=== PATIENT | female | born 1950 | race Caucasian/White ===

== ENCOUNTER 2023-02-03 09:02 | Outpatient (CLI) | payer MEDICARE, BC, SELFPAY ==
--- NOTE | 2023-02-03 09:15 | CRLHL7_ITS ---
For Patients: As a result of the Century Cures Act, medical imaging exams and procedure reports are released immediately into your electronic medical record. You may view this report before your referring provider. If you have questions, please contact your health care provider. INDICATION: Oropharyngeal dysphagia TECHNIQUE: Modified barium swallow. Fluoroscopic time 1 minute 19 seconds. 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 Swallowing mechanism appears within normal limits. No episodes of penetration or aspiration. Difficulty initiating the swallowing mechanism. Dictated by Tonny John MD @ 02/03/2023 10:41:06 AM (Electronically Signed)
== END 2023-02-03 09:03 | disposition home or self-care (01) ==
LOC: RAD 09:06
PROVIDERS: PCP Family Medicine; Visit Provider Family Medicine
DX: R13.12 Dysphagia, oropharyngeal phase (principal)
CPT/HCPCS: 74230; 92611

== ENCOUNTER 2023-10-26 08:09 | Outpatient (CLI) | payer MEDICARE, BC, SELFPAY | END 2023-10-26 08:10 | disposition home or self-care (01) | PROVIDERS: PCP Family Medicine; Visit Provider Family Medicine | DX: M54.16 Radiculopathy, lumbar region (principal); M51.36 Other intervertebral disc degeneration, lumbar region | CPT/HCPCS: 62323; J0702; Q9966 ==

== ENCOUNTER 2024-02-09 14:24 | Outpatient (RCR) | payer MEDICARE, BC, SELFPAY ==
--- NOTE | 2024-02-09 15:47 | PT.OPEX ---
PT [place] Out[facility] Eval PT [facility] Outpatient Eval Start: 02/09/24 11:43 Freq: Status: Active Protocol: Document 02/09/24 11:47 ENM (Rec: 02/09/24 15:29 ENM [id number]) E-signed By LEEROY JaramilloT Physical Therapy Outpatient Evaluation Insurance Information Recert Due Date 05/09/24 Insurance Name Medicare B Medical Diagnosis unilateral primary osteoarthritis, left hip Treating Diagnosis impaired gait, impaired posture, decreased hip ROM, decreased hip strength Referring MD [place] Subjective Subjective Patient presents to PT for pre -operative appointment prior to left total hip arthroplasty and right hip fluoroscopic guided steroid injection on 02/24/24 to be performed by Dr. Colorado. She has had back and bilateral hip pains for years. Her back is bothering her the most right now which is an issue she deals with on and off. She has seen a PT at [facility] for years and has been working with them leading up to the surgery. Is also going to have rehab with them after. At baseline she stays active with water aerobics everyday. Is hoping she can get back to walking and biking after the surgery. She states that today she doesn't feel well and is dizzy. For additional home set up information see pre-op flowsheet. Pain Comments back 08/01 left and right hip moderate levels of pain Date of Surgery (If applicable) 02/24/24 Current Work Status Retired Objective Other/Pertinent Objective Limited assessment as patient not feeling well due to dizziness and low back pain AROM hip flexion WNL hip IR 50% limited R WFL hip ER 50% limited R WFL strength: hip flexors 4-/5 B knee extensors 4-/5 B gait/balance: Patient ambulates with flexed trunk posture, decreased knee ext bilaterally, decreased hip extension bilaterally and antalgic gait pattern other: Patient slow to transition from hip flexion to ext when laying down due to discomfort in left hip Assessment Assessment/Impression Patient is a 74 year old female presenting for pre op visit prior to L ANTWAN and R hip injection on DOS 02/24/24. Patient has a long history of bilateral hip and low back pains. Her low back and right hip are being managed with injections. She has also participated in physical therapy and water aerobics consistently for years. They have difficulties right now walking, sitting and standing. She will have assist from spouse and sister at home after surgery. Patients goal is to be able to walk and ride her bike again. Assessment today was limited due to patient feeling dizzy and having significant low back pain. Upon assessment patient displays decreased hip ROM, decreased proximal hip strength and antalgic gait pattern. Therapist issued post op exercises today which she plans to review with her primary PT later this week before surgery. Alona will be seen post operatively at another facility to reassess impairments that will be addressed with skilled care. She would greatly benefit from skilled PT in order to progress strength, ROM and ambulation post operatively to perform all household duties and recreational activities without significant difficulty or discomfort. Primary Functional Limitations walking, sitting, standing Plan of Care Rehabilitation Potential Good Physical Therapy Goals After pre-op visit: ? Patient will be independent with HEP ? Patient will verbalize knowledge of stair navigation and proper sequencing ? Patient will have knowledge on home adaptations and use of assistive devices post operatively ? Patient will have knowledge of edema management Coordination/Communication With Referral Source Treatment Plan/Direct Interventions Gait Training,Ice/Cold/ Vasopneumatic,Joint Mobilization,Manual Therapy, Neuromuscular Re-ed,Self-Care/ Home Management,Therapeutic Activities,Therapeutic Exercises Frequency/Duration 1x visit prior to surgery on . Patient scheduled to start outpatient PT s/p L ANTWAN on 02/24/24 with a [facility] Therapist. Has HEP to start with pre-operatively. Patient Will Be Discharged From Therapy Completion of LTG(s), Independent w/HEP Evaluation Billing Untimed Code Treatment Minutes 14 Complexity Low Certification Information Initial Certification Date 02/09/24 Ending Certification Date 05/09/24 Provider Signature Shows Agreement With POC & Medical Necessity Physician Signature & Date Requested Please Sign/Date Here Physician Comment/Change : Physician NPI Number #
== END 2024-06-08 23:59 | disposition home or self-care (01) ==
PROVIDERS: PCP Family Medicine; Visit Provider Orthopaedic Surgery
DX: M16.12 Unilateral primary osteoarthritis, left hip (principal); R26.9 Unspecified abnormalities of gait and mobility; Z51.89 Encounter for other specified aftercare; R29.898 Other symptoms and signs involving the musculoskeletal system; R29.3 Abnormal posture
CPT/HCPCS: 97110; 97161

== ENCOUNTER 2024-02-24 06:35 | Day surgery (SDC) | payer MEDICARE, BC, SELFPAY ==
[2024-02-24] VITALS (35 sets, daily range): BP systolic 89–165; BP diastolic 49–99; PULSE 42–112; RESP 14–20; TEMP 35.7–37; O2SAT 90–100; BMI 21.5
[2024-02-24] MEDS: CELECOXIB 200 MG CAPSULE PO (06:27)
[2024-02-24] MEDS: ACETAMINOPHEN 500 MG TABLET 1000 MG PO ×3 (06:27→20:32)
[2024-02-24] MEDS: OXYCODONE (CR) 10 MG TAB.ER.12H PO (06:27)
[2024-02-24] MEDS: SODIUM CHLORIDE 0.9 % (FLUSH) 10 ML SYRINGE IVF ×3 (06:35→23:51)
[2024-02-24] MEDS: LACTATED RINGERS 1000 ML 1,000 ML 100 ML IV ×3 (06:35→11:28)
[2024-02-24] MEDS: MIDAZOLAM HCL 1 MG/ML inj IVP (07:15)
[2024-02-24] MEDS: fentaNYL 100 MCG/2 ML inj IVP (07:15)
--- NOTE | 2024-02-24 07:32 | W.PM.NB ---
Nerve Block Nerve Block Time Seen by Provider: 07:10 Date Seen: 02/24/24 Type of block requested by surgeon for post-operative analgesia: CULLEN/JESICA Side: left Time out performed: Yes Verification of patient name: Yes Verification of date of : Yes Site marking: site marked Name of person performing procedure: Nando Continuous monitoring Was continuous monitoring of O2 sat, B/P, quality assurance monitor, recorded every 15 minutes?: Yes Procedure Checklist: sterile prep, needles and gloves Ultrasound guided. Images saved: Yes Medications given in 5ml increments after negative aspiration: Ropivicaine %: 0.5 mL: 30 Needle gauge: 20 Decadron (mg): 10 Precedex (mcg): 25 Patient tolerated procedure well: Yes Additional comments: Injected in 5 mL increments after negative aspiration Block Charges Block Charge (with Pro Fee): Other Periph Nerve Block (PRABHA BERMAN) Use of Ultrasound Machine for Block: Yes- US Guidance/pain block
--- NOTE | 2024-02-24 07:45 | XR_ITS ---
Patient: JOVITA LEVINE Facility:?[facility] Patient ID:?[id number] Site Patient ID:?[id number]. Site :?1950 Study:?XRay-Hip Left INTRA OP-02/24/2024 11:19:48 AM Ordering Physician:MEENAKSHI Final Report: Indication: Hip replacement surgery Technique: Fluoroscopic images of the hips, including AP hip centered pelvic films, AP view of the left hip and AP view of the right hip. Fluoroscopy time 74.3 seconds. Findings/Impression: Hardware from a left total hip arthroplasty is in satisfactory position. Fluoroscopic guidance for right hip injection also noted. Dictated by Tonny John MD @ 02/24/2024 12:32:34 PM Signed by:?Tonny John MD @02/24/2024 12:32:34 PM (Electronic Signature)
[2024-02-24] MEDS: CEFAZOLIN 2 GM INJ IVP (08:17)
[2024-02-24] MEDS: TRANEXAMIC ACID 100 MG/ML INJ 1000 MG IV (08:18)
[2024-02-24] MEDS: methylPREDNISolone acetate 80 MG/ML INJ INTRA-ARTI (09:39)
[2024-02-24] MEDS: BUPIVACAINE 0.25% 30 ML INJECTION (09:39)
--- NOTE | 2024-02-24 09:46 | XR_ITS ---
Patient: JOVITA LEVINE Facility:?[facility] Patient ID:?[id number] Site Patient ID:?[id number]. Site :?1950 Study:?XRay-Hip Left 2 VIEW POSTOP-02/24/2024 11:00:06 AM Ordering Physician:MEENAKSHI Final Report: Indication: Postop Technique: AP pelvis and lateral view left hip Findings/Impression: Hardware from a left total hip arthroplasty is in satisfactory position. Bone alignment is normal. No sign of acute fracture. Postop changes are within normal limits. Dictated by Tonny John MD @ 02/24/2024 12:33:12 PM Signed by:?Tonny John MD @02/24/2024 12:33:12 PM (Electronic Signature)
--- NOTE | 2024-02-24 09:47 | P.ORPRC_ITS ---
Procedure Note Date of procedure: 02/24/24 Procedure: PREOPERATIVE DIAGNOSIS: Bilateral hip osteoarthritis POSTOPERATIVE DIAGNOSIS: Bilateral hip osteoarthritis NAME OF OPERATION: Left total hip arthroplasty, right hip fluoroscopic guided steroid injection SURGEON: Fede Colorado MD PHOTOGRAPHIC DOUBLE: Pooja Barksdale PA-C, STANFORD Monsalve IMPLANTS: 1. J[employer]J Rheems # 52 sector ingrowth cup 2. 36 x 52 +4 neutral polyethylene 3. Actis # 3 standard collared ingrowth stem 4. 36 + 1.5 ceramic femoral head ANESTHESIA: General ESTIMATED BLOOD LOSS: 550 cc COMPLICATIONS: None SPECIMENS: None DRAINS: None PREOPERATIVE ANTIBIOTICS: Ancef 1 grams INDICATIONS: The patient is a 73-year-old with a longstanding history of severe, unrelenting left hip pain secondary to end-stage left hip osteoarthritis. Despite appropriate nonoperative management, including activity modification, use of an assist device, anti-inflammatories, [id number] pain medication, physical therapy and injections, they continue to have pain and disability. Operative intervention was offered. The risks, benefits and expected outcomes were discussed in detail. These included but were not limited to: Infection, bleeding, injury to blood vessel or nerve, venous thromboembolism. All questions were answered to their satisfaction. Use of an outpatient physical therapist assistant was necessary throughout the case for patient positioning and safety, soft tissue retraction and closure. PROCEDURE: The patient was placed supine on the Kistler table. General anesthesia was administered. The outpatient physical therapist assistant made sure the patient was properly positioned. The left hip was prepped and draped in the usual sterile fashion. The image intensifier was brought in for a perfect AP pelvis and a perfect double tear drop AP view of each hip which were used for intraoperative templating with our fluoroscopic guide. An oblique incision was made 3 cm distal and 3 cm lateral to the anterior superior iliac spine. The outpatient physical therapist assistant retracted the soft tissues to protect them. Subcutaneous dissection was taken with electrocautery to the superficial fascia. The fascia was divided in line with the incision. Blunt dissection was carried medially to the tensor fascia ricci and sartorius interval. Deep dissection was carried with electrocautery. The circumflex vessels were cauterized and divided. The capsule was exposed and then divided in a T- fashion, tagged with #1 Ethibond sutures. Retractors were placed in the joint, held by the outpatient physical therapist assistant. The corkscrew was placed in the femoral head. The neck cut was made in the subcapital region. We made a second neck cut more distal. The napkin ring of bone was removed. The femoral head was removed intact. Acetabular retractors were placed, held by the outpatient physical therapist assistant. The labrum was sharply debrided. The capsule was released. The 43 mm reamer was used to the tr ue medial wall. We then enlarged in 2 mm increments using the image intensifier for our reamer placement. We impacted the cup which had excellent purchase. We placed the polyethylene. Attention was then turned to the proximal femur. The limb was placed in 140 degrees of external rotation, maximum extension and adduction. A significant amount of time was spent releasing the capsule to allow us to deliver the femur into the wound and complete the femoral side safely. Retractors were held by the outpatient physical therapist assistant throughout the femoral preparation. The safe deposit box rental clerk and canal finder were used. Broaches were used to a stable size. The calcar reamer was used. Trial components were placed. The hip was reduced and was found to be stable with appropriate soft tissue tension. Length and offset had been nicely restored using the image intensifier and our fluoroscopic guide. Trial components were removed. The stem was impacted. We placed the femoral head. Again, the hip was reduced and was found to be stable with appropriate soft tissue tension. Length and offset had been nicely restored. The right hip was prepped in the usual sterile fashion. The image intensifier was used to confirm placement of the 18 gauge spinal needle over the anterior femoral neck. The joint was injected with 4 mL 0.25% Marcaine without epinephrine, 40 mg Depo-Medrol. The outpatient physical therapist assistant did a three minute dilute Betadine solution soak. The outpatient physical therapist assistant irrigated the wound with 3 liters of normal saline via pulse lavage. The outpatient physical therapist assistant repaired the anterior capsule with a #1 Vicryl and our previously placed Ethibond sutures. The outpatient physical therapist assistant closed the fascia over the tensor fascia ricci with a #1 PDO Stratafix, subcutaneous tissues with 2-0 Vicryl, skin with a running 3-0 Stratafix and glue. A dry dressing was applied by the outpatient physical therapist assistant. Sponge and needle counts were correct x 2. The patient tolerated the procedure well; there were no apparent complications. They were awakened and extubated in the operating room, sent to the Post-Anesthesia Care Unit in satisfactory condition. PLAN: 1. The patient will be mobilized with physical therapy, weight-bearing as tolerates 2. Xarelto x 5 days then aspirin x 30 days will be used for DVT prophylaxis 3. The patient will be discharged once medically appropriate
--- NOTE | 2024-02-24 10:34 | W.ANESCHARGE ---
Anesthesia Charges Start Date/Time Anesthesia Start Date: 02/24/24 Anesthesia Start Time: 08:01 Stop Date/Time Anesthesia Stop Date: 02/24/24 Anesthesia Stop Time: 10:31
[2024-02-24] MEDS: fentaNYL 100 MCG/2 ML inj 50 MCG IVP ×2 (10:43→11:09)
--- NOTE | 2024-02-24 10:46 | FL_ITS ---
Patient: JOVITA LEVINE Facility:?[facility] Patient ID:?[id number] Site Patient ID:?[id number]. Site :?1950 Study:?XRay-Hip Right INJECTION INTRA OP-02/24/2024 11:24:25 AM Ordering Physician:MEENAKSHI Final Report: Indication: Right hip injection. Left hip arthroplasty. Technique: Three fluoroscopic images of the pelvis/hips performed. Fluoroscopic time 74.3 seconds. IMPRESSION: Fluoroscopic guidance for left hip arthroplasty and right hip injection. Dictated by Tonny John MD @ 02/24/2024 12:31:29 PM Signed by:?Tonny John MD @02/24/2024 12:31:29 PM (Electronic Signature)
[2024-02-24] MEDS: HYDROmorphone 0.5 mg/0.5 ml inj IVP (10:50)
[2024-02-24] MEDS: hydrOXYzine pamoate 25 MG CAPSULE PO (11:41)
--- NOTE | 2024-02-24 12:46 | SUR.PHASEII ---
Attempted to get patient up into the chair. Patient became dizzy & lightheaded while sitting on the edge of the bed and fell back into the bed. Patient stated she felt very weak. Patient verbalized she did not feel safe going home
[2024-02-24] MEDS: LACTATED RINGERS 1000 ML 1,000 ML 75 ML IV ×2 (13:50→23:49)
--- NOTE | 2024-02-24 14:38 | SUR.PHASEII ---
1405: Pt tolerated bites of yogurt and sips of water. repositioned in bed with feet elevated and warm blanket under her back. Pt states that helps. RN to RN report given in phone, pt transferred to MS on cart by Coat Operator, Diann.
--- NOTE | 2024-02-24 15:12 | PM.IMCN1 ---
Date of Consult Patient: [place] Patient Consult date: 02/24/24 Requesting Physician: Orthopedics Primary Care Provider: Maria E Nix DO Consult Narrative Reason for consult: Post-op anemia and hypotension, plus chronic pain Narrative: Alona Rodriguez is a 73 year old underwent an elective left total hip arthroplasty with Dr. Colorado, orthopedic surgeon, [facility], today. Estimated blood loss intraoperatively was 550 ml. Has baseline soft blood blood pressures, and blood pressures post-operatively dropped into the 80s systolically, warranting crystalloid IVF administration with SBPs improving to the loww 100s subsequently. Otherwise doing well at this time. Review of Systems Status of ROS: Reports: 10 or more systems reviewed and unremarkable except as noted in History and below Narrative: Still numb and unable to move LLE post-op. Has hoarse voice and cough since anesthesia and intubation/ventilation. Otherwise doing well. [facility] Medical History GERD (gastroesophageal reflux disease) ?K21.9 - Gastro-esophageal reflux disease without esophagitis (ICD-10) Diverticulitis ?K57.92 - Diverticulitis of intestine, part unspecified, without perforation or abscess without bleeding (ICD-10) Allergic rhinitis ?J30.9 - Allergic rhinitis, unspecified (ICD-10) DDD (degenerative disc disease), lumbosacral ?M51.37 - Other intervertebral disc degeneration, lumbosacral region (ICD-10) Lumbosacral radiculopathy at L1 ?M54.17 - Radiculopathy, lumbosacral region (ICD-10) Surgical History History of arthroscopy of right shoulder ?Z98.890 - Other specified postprocedural states (ICD-10) History of surgery on upper extremity (11/2004) ?Z98.890 - Other specified postprocedural states (ICD-10) History of cervical discectomy (06/1994) ?Z98.890 - Other specified postprocedural states (ICD-10) H/O arthroscopy of left knee (11/2004) ?Z98.890 - Other specified postprocedural states (ICD-10) H/O dilation and curettage (05/06/86) ?Z98.890 - Other specified postprocedural states (ICD-10) H/O dilation and curettage (05/06/78) ?Z98.890 - Other specified postprocedural states (ICD-10) History of breast augmentation ?Z98.82 - Breast implant status (ICD-10) History of cholecystectomy ?Z90.49 - Acquired absence of other specified parts of digestive tract (ICD-10) History of appendectomy (03/1983) ?Z90.49 - Acquired absence of other specified parts of digestive tract (ICD-10) Family History Mother High blood pressure Heart disease High cholesterol Thyroid disease Stroke Father Dementia Depression Brother Myocardial infarction Esophageal cancer Social History Narrative: -Johnny Smoking Status: Never smoker Do you use any of these nicotine containing products: None Second hand tobacco smoke exposure: No How often do you have a drink containing alcohol: never AUDIT-C Alcohol total score: 0 Non-prescribed substance use: marijuana (any form) Caffeine: No Are you now , , , , never or living with a partner: Social isolation score (0-1 are the most socially isolated patients): 1 Meds Home Medications and Allergies Home Medications Medication Instructions Recorded Confirmed Type acetaminophen 500 mg tablet 1,000 mg PO Q6H PRN 01/31/24 02/24/24 History (Tylenol Extra Strength) celecoxib 100 mg capsule 100 mg PO BID 01/31/24 02/24/24 History omeprazole 20 mg capsule,delayed 20 mg PO DAILY 01/31/24 02/24/24 History release sertraline 50 mg tablet 50 mg PO DAILY 01/31/24 02/24/24 History Home Medication Comments: Also takes medical marijuana for chronic back pain. Allergies Allergy/AdvReac Type Severity Reaction Status Date / Time bee pollen Allergy Unknown Verified 02/24/24 06:39 Exam Narrative: Exam Narrative: Examined in her hospital room. Appears comfortable and in no acute distress. Vision and hearing are grossly normal. Alert and oriented to self, place, time, and situation. Articulate, cooperative, friendly. CN 3-12 grossly normal. Lungs are clear to auscultation. Heart tones with regular rhythm, normal S1S2, without murmur. Abdomen with active bowel sounds, soft, non-tender. Extremities without edema. SCDs in place. Const: Vital Signs, click to edit/add: Vital Signs - 24 hr 02/24/24 06:39 02/24/24 07:13 02/24/24 07:15 Temperature 97.9 F Pulse Rate 56 L 61 63 Respiratory Rate 16 16 16 Blood Pressure 123/72 129/97 H 134/73 Pulse Oximetry 96 98 98 Oxygen Delivery Me thod Room Air Nasal Cannula Nasal Cannula Oxygen Flow Rate 2 2 02/24/24 07:20 02/24/24 07:25 02/24/24 10:27 Temperature 96.3 F L Pulse Rate 54 L 52 L 59 L Respiratory Rate 16 16 14 Blood Pressure 132/73 131/73 142/88 H Pulse Oximetry 98 99 99 Oxygen Delivery Me thod Nasal Cannula Nasal Cannula Room Air Oxygen Flow Rate 2 2 0 02/24/24 10:30 02/24/24 10:35 02/24/24 10:40 Temperature 96.5 F L 97 F L Pulse Rate 53 L 58 L 49 L Respiratory Rate 14 14 14 Blood Pressure 119/61 165/92 H 139/68 Pulse Oximetry 99 99 92 Oxygen Delivery Me thod Room Air Room Air Room Air Oxygen Flow Rate 0 0 0 02/24/24 10:45 02/24/24 10:50 02/24/24 10:55 Temperature Pulse Rate 49 L 42 L 45 L Respiratory Rate 14 14 14 Blood Pressure 132/66 127/99 H 114/53 L Pulse Oximetry 92 90 99 Oxygen Delivery Me thod Room Air Room Air Nasal Cannula Oxygen Flow Rate 0 0 2 02/24/24 11:00 02/24/24 11:05 02/24/24 11:10 Temperature 97 F L Pulse Rate 50 L 49 L 45 L Respiratory Rate 14 14 14 Blood Pressure 97/49 L 102/53 L 112/61 Pulse Oximetry 99 97 98 Oxygen Delivery Me thod Nasal Cannula Nasal Cannula Nasal Cannula Oxygen Flow Rate 2 2 2 02/24/24 11:25 02/24/24 11:34 02/24/24 11:45 Temperature 97 F L Pulse Rate 48 L 46 L 47 L Respiratory Rate 14 14 14 Blood Pressure 110/57 L 110/68 115/57 L Pulse Oximetry 98 95 92 Oxygen Delivery Me thod Nasal Cannula Room Air Room Air Oxygen Flow Rate 2 02/24/24 12:00 02/24/24 12:15 02/24/24 12:30 Temperature Pulse Rate 44 L 49 L 46 L Respiratory Rate 14 14 14 Blood Pressure 99/56 L 93/52 L 92/52 L Pulse Oximetry 92 91 91 Oxygen Delivery Me thod Room Air Room Air Room Air Oxygen Flow Rate 02/24/24 12:45 02/24/24 13:00 02/24/24 13:15 Temperature Pulse Rate 45 L 53 L 47 L Respiratory Rate 14 14 16 Blood Pressure 93/63 89/51 L 97/59 L Pulse Oximetry 96 97 97 Oxygen Delivery Me thod Nasal Cannula Nasal Cannula Nasal Cannula Oxygen Flow Rate 2 2 2 02/24/24 13:15 02/24/24 13:30 02/24/24 14:00 Temperature Pulse Rate 112 H 81 77 Respiratory Rate 16 16 16 Blood Pressure 117/88 115/82 114/71 Pulse Oximetry 93 100 100 Oxygen Delivery Me thod Nasal Cannula Nasal Cannula Oxygen Flow Rate 2 2 Assessment and Plan Assessment and plan (1) Osteoarthritis of left hip: Status: Acute (2) Status post left hip replacement: Problem comment: Dr. Fede Colorado, [facility], 02/24/24 Status: Acute (3) Postoperative hypotension: Problem comment: Intra-operative EBL 550 ml Status: Acute Assessment and Plan: - check Hgb at 1700 02/24/24 and again tomorrow - consider crystalloid IVF and PRBC tx as warranted - reviewed with patient and she is agreeable (4) Chronic pain: Problem comment: - orthopedic surgery will decide on re-initiation of celecoxib and medical cannabis post-operatively Status: Acute (5) Medical cannabis use: Status: Acute Plan 1. Reviewed with patient 2. Will follow with orthopedic surgery 3. Hold fish oil extract post-op for at least 1 month 4. Agree with post op VTE prophylaxis 5. Agree with perioperative antibiotic prophylaxis 6. Agree with physical and occupational therapy consultation and support 7. Completed hospitalist portion of discharge orders Total Time Spent Total Time Spent: 45 minutes
[2024-02-24] MEDS: OXYCODONE 5 MG TABLET PO ×2 (16:16→19:11)
[2024-02-24] MEDS: CEFAZOLIN 2 GM in 0.9 % SODIUM CHLORIDE Mini-bag 100 ML IVPB ×2 (16:17→23:50)
[2024-02-24 17:26] LABS: Hemoglobin* 10.6 gm/dL (12.0-16.0)
--- NOTE | 2024-02-24 19:05 | PC.NURSE ---
End of shift [id number] ? Pt arrived from Same Day Surgery at approximately 1410. Pt alert, oriented, cooperative, and fatigued. Pt reported pain with movement but reported being comfortable at rest. Up with 1 assist to chair and bedside commode, continent of bladder and able to void independently. Pt reported brief feeling of dizziness while standing and was able to recover quickly. Pt tolerating RA, regular diet, fluids. Family at bedside. Pt observed to sleep during shift, appears to be resting comfortably at end of shift. ?
[2024-02-24] MEDS: SENNOSIDES 1 TAB TABLET 2 TAB PO (20:32)
[2024-02-25 03:00] VITALS: BP 109/64; PULSE 83; RESP 18; TEMP 37.2; O2SAT 94
[2024-02-25] MEDS: ACETAMINOPHEN 500 MG TABLET 1000 MG PO ×2 (03:14→09:30)
[2024-02-25] MEDS: OXYCODONE 5 MG TABLET PO ×2 (03:14→09:26)
--- NOTE | 2024-02-25 05:19 | NUTR.NU ---
[id number] Pt slept well during night, ambulating to BR with walker, GB, SBA, tolerating activity well, denies lightheaded/dizziness. Pain controlled with scheduled and PRN pain medications. Ice to L hip during night, bruising noted to anterior L thigh. bilateral pedal pulses present. denies N/V and tolerating PO intake.
[2024-02-25] MEDS: OMEPRAZOLE 20 MG CAPSULE DR PO (06:09)
[2024-02-25 07:00] VITALS: BP 115/72; PULSE 83; RESP 18; TEMP 37.1; O2SAT 94
--- NOTE | 2024-02-25 07:23 | PM.ORPN ---
Subjective Subjective Time Seen by Provider: 07: Date Seen: 02/25/24 Principal diagnosis: Post left hip replacement Interval history: Alona is doing well. She states she has been up to the bathroom every hour. She denies dizziness, lightheadedness. She is able to easily get in and out of bed on her own. She states that her back pain is better. She will discharge to home today. Ortho Exam Narrative Exam Narrative: Alert and oriented x3. Patient is in no acute distress. Converses without labored breathing. Hearing is grossly intact. Ambulates with a walker. Dressing is intact. Ecchymosis posterior thigh/hip area. Minimal soft tissue edema. No erythema or warmth or sign of infection. CMS intact left lower extremity. Bilateral calves are soft and nontender. She easily gets out of bed ambulates to the restroom and back. Const Vital Signs, click to edit/add: Vital Signs - 24 hr 02/24/24 07:25 02/24/24 10:27 02/24/24 10:30 Temperature 96.3 F L 96.5 F L Pulse Rate 52 L 59 L 53 L Pulse Rate [Pulse Oximeter] Respiratory Rate 16 14 14 Blood Pressure 131/73 142/88 H 119/61 Blood Pressure [Left Arm] Pulse Oximetry 99 99 99 Oxygen Delivery Method Nasal Cannula Room Air Room Air Oxygen Flow Rate 2 0 0 02/24/24 10:35 02/24/24 10:40 02/24/24 10:45 Temperature 97 F L Pulse Rate 58 L 49 L 49 L Pulse Rate [Pulse Oximeter] Respiratory Rate 14 14 14 Blood Pressure 165/92 H 139/68 132/66 Blood Pressure [Left Arm] Pulse Oximetry 99 92 92 Oxygen Delivery Method Room Air Room Air Room Air Oxygen Flow Rate 0 0 0 02/24/24 10:50 02/24/24 10:55 02/24/24 11:00 Temperature 97 F L Pulse Rate 42 L 45 L 50 L Pulse Rate [Pulse Oximeter] Respiratory Rate 14 14 14 Blood Pressure 127/99 H 114/53 L 97/49 L Blood Pressure [Left Arm] Pulse Oximetry 90 99 99 Oxygen Delivery Method Room Air Nasal Cannula Nasal Cannula Oxygen Flow Rate 0 2 2 02/24/24 11:05 02/24/24 11:10 02/24/24 11:25 Temperature Pulse Rate 49 L 45 L 48 L Pulse Rate [Pulse Oximeter] Respiratory Rate 14 14 14 Blood Pressure 102/53 L 112/61 110/57 L Blood Pressure [Left Arm] Pulse Oximetry 97 98 98 Oxygen Delivery Method Nasal Cannula Nasal Cannula Nasal Cannula Oxygen Flow Rate 2 2 2 02/24/24 11:34 02/24/24 11:45 02/24/24 12:00 Temperature 97 F L Pulse Rate 46 L 47 L 44 L Pulse Rate [Pulse Oximeter] Respiratory Rate 14 14 14 Blood Pressure 110/68 115/57 L 99/56 L Blood Pressure [Left Arm] Pulse Oximetry 95 92 92 Oxygen Delivery Method Room Air Room Air Room Air Oxygen Flow Rate 02/24/24 12:15 02/24/24 12:30 02/24/24 12:45 Temperature Pulse Rate 49 L 46 L 45 L Pulse Rate [Pulse Oximeter] Respiratory Rate 14 14 14 Blood Pressure 93/52 L 92/52 L 93/63 Blood Pressure [Left Arm] Pulse Oximetry 91 91 96 Oxygen Delivery Method Room Air Room Air Nasal Cannula Oxygen Flow Rate 2 02/24/24 13:00 02/24/24 13:15 02/24/24 13:15 Temperature Pulse Rate 53 L 47 L 112 H Pulse Rate [Pulse Oximeter] Respiratory Rate 14 16 16 Blood Pressure 89/51 L 97/59 L 117/88 Blood Pressure [Left Arm] Pulse Oximetry 97 97 93 Oxygen Delivery Method Nasal Cannula Nasal Cannula Oxygen Flow Rate 2 2 02/24/24 13:30 02/24/24 14:00 02/24/24 15:00 Temperature 97.0 F L Pulse Rate 81 77 51 L Pulse Rate [Pulse Oximeter] Respiratory Rate 16 16 20 Blood Pressure 115/82 114/71 107/80 Blood Pressure [Left Arm] Pulse Oximetry 100 100 96 Oxygen Delivery Method Nasal Cannula Nasal Cannula Room Air Oxygen Flow Rate 2 2 02/24/24 15:14 02/24/24 16:00 02/24/24 17:00 Temperature 97.2 F L 97.6 F 97.9 F Pulse Rate 65 51 L 51 L Pulse Rate [Pulse Oximeter] Respiratory Rate 20 20 20 Blood Pressure 120/65 102/74 114/64 Blood Pressure [Left Arm] Pulse Oximetry 95 95 94 Oxygen Delivery Method Room Air Room Air Room Air Oxygen Flow Rate 02/24/24 18:00 02/24/24 19:09 02/24/24 20:32 Temperature 98.6 F 98.2 F 98.2 F Pulse Rate 51 L Pulse Rate [Pulse Oximeter] 55 L Respiratory Rate 20 16 Blood Pressure 98/74 Blood Pressure [Left Arm] 96/65 Pulse Oximetry 95 95 Oxygen Delivery Method Room Air Room Air Oxygen Flow Rate 02/24/24 21:31 02/24/24 23:00 02/25/24 03:00 Temperature 98.2 F 98.5 F 99.0 F Pulse Rate Pulse Rate [Pulse Oximeter] 53 L 83 Respiratory Rate 16 18 Blood Pressure Blood Pressure [Left Arm] 99/52 L 109/64 Pulse Oximetry 96 94 Oxygen Delivery Method Room Air Room Air Oxygen Flow Rate 0 Assessment and Plan Assessment and plan (1) Status post left hip replacement: Problem details: 02/24/2024 Status: Acute Assessment and Plan: Plan for discharge is today to home if they meet discharge criteria. DVT prophylaxis includes Xarelto 10 mg daily for total of 5 days, then aspirin 81 mg twice daily for 30 days, Adrian stockings x1 month may remove for 1 hr per day, frequent ambulation Remove dressing 1 week. Observe wound and phone Orthopedics with any questions or concerns Use Ice on operative hip unrestricted. Return to clinic in 1 week with PA for a wound check Return to clinic in 6 weeks with surgeon Minimize narcotic use. Wean off and discontinue soon as possible. Activities as tolerated. No strenuous activity. Attend outpt PT
[2024-02-25] MEDS: SERTRALINE 50 MG TABLET PO (09:30)
[2024-02-25] MEDS: SENNOSIDES 1 TAB TABLET 2 TAB PO (09:30)
[2024-02-25] MEDS: RIVAROXABAN 10 MG TABLET PO (09:30)
--- NOTE | 2024-02-28 14:29 | SUR.OPER ---
Verified anesthesia end and chart verification with Camilla JULIEN.
== END 2024-02-25 10:56 | disposition home or self-care (01) ==
LOC: OR 10:38 → MEDSURG 14:40
PROVIDERS: Internal Medicine; PCP Family Medicine; Visit Provider Orthopaedic Surgery
PROC: (CPT 27130; principal; 2024-02-24 07:45)
PROC: (CPT 27130; 2024-02-24 07:45)
DX: M16.0 Bilateral primary osteoarthritis of hip (principal); G89.18 Other acute postprocedural pain; I95.81 Postprocedural hypotension; K21.9 Gastro-esophageal reflux disease without esophagitis; F33.9 Major depressive disorder, recurrent, unspecified; G89.29 Other chronic pain; M54.9 Dorsalgia, unspecified
CPT/HCPCS: 27130; 20610; 01214; 36415; 64450; 73501; 76000; 76942; 77002; 85018; 86850; 86900; 86901; 97110; 97116; 97161; 97165; 97530; 97535; A9270; C1776; J0330; J0665; J0690; J1010; J1100; J1170; J2250; J2371; J2405; J2704; J2710; J2795; J3010; J3490; J7120; Q9966

== ENCOUNTER 2024-02-27 04:40 | Emergency (ER) | payer MEDICARE, BC, SELFPAY ==
[2024-02-27 04:48] VITALS: BP 133/66; PULSE 84; RESP 20; TEMP 37.6; O2SAT 99; BMI 21.4
--- NOTE | 2024-02-27 04:54 | ED.GENADULT ---
HPI - General Adult General Chief complaint: Nausea/Vomiting Stated complaint: post op vomiting Time Seen by Provider: 02/27/24 04:47 History of Present Illness HPI narrative: Patient is a 73-year-old woman who had hip replacement 3 days ago and now has developed nausea vomiting. She has no redness or pain in the affected hip. She has had no fevers no chills no night sweats. She does states that she cannot keep anything down and is concerned she may be getting dehydrated. She has no significant pain or discomfort. No abdominal pain no chest pain. She has no blood in her vomitus. Related Data Home Medications Medication Instructions Recorded Confirmed acetaminophen 500 mg tablet 1,000 mg PO Q6H PRN 01/31/24 02/27/24 (Tylenol Extra Strength) celecoxib 100 mg capsule 100 mg PO BID 01/31/24 02/24/24 omeprazole 20 mg capsule,delayed 20 mg PO DAILY 01/31/24 02/27/24 release sertraline 50 mg tablet 50 mg PO DAILY 01/31/24 02/27/24 Previous Rx's Medication Instructions Recorded aspirin 81 mg chewable tablet 81 mg PO BID for DVT prophylaxis 02/24/24 (Aspirin Childrens) 30 days #60 tabs oxycodone 5 mg tablet 2.5 - 5 mg (0.5 - 1 x 5 mg) PO 02/24/24 Q4-6H PRN Pain #42 tabs sennosides 8.6 mg tablet (Senna 17.2 mg (2 x 8.6 mg) PO BID PRN 02/24/24 Lax) constipation #100 tabs Allergies Allergy/AdvReac Type Severity Reaction Status Date / Time bee pollen Allergy Unknown Verified 02/27/24 04:50 Review of Systems Status of ROS: Reports: 10 or more systems reviewed and unremarkable except as noted in History and below [facility] Medical History GERD (gastroesophageal reflux disease) ?K21.9 - Gastro-esophageal reflux disease without esophagitis (ICD-10) Diverticulitis ?K57.92 - Diverticulitis of intestine, part unspecified, without perforation or abscess without bleeding (ICD-10) Allergic rhinitis ?J30.9 - Allergic rhinitis, unspecified (ICD-10) DDD (degenerative disc disease), lumbosacral ?M51.37 - Other intervertebral disc degeneration, lumbosacral region (ICD-10) Lumbosacral radiculopathy at L1 ?M54.17 - Radiculopathy, lumbosacral region (ICD-10) Surgical History History of arthroscopy of right shoulder ?Z98.890 - Other specified postprocedural states (ICD-10) History of surgery on upper extremity (11/2004) ?Z98.890 - Other specified postprocedural states (ICD-10) History of cervical discectomy (06/1994) ?Z98.890 - Other specified postprocedural states (ICD-10) H/O arthroscopy of left knee (11/2004) ?Z98.890 - Other specified postprocedural states (ICD-10) H/O dilation and curettage (05/06/86) ?Z98.890 - Other specified postprocedural states (ICD-10) H/O dilation and curettage (05/06/78) ?Z98.890 - Other specified postprocedural states (ICD-10) History of breast augmentation ?Z98.82 - Breast implant status (ICD-10) History of cholecystectomy ?Z90.49 - Acquired absence of other specified parts of digestive tract (ICD-10) History of appendectomy (03/1983) ?Z90.49 - Acquired absence of other specified parts of digestive tract (ICD-10) Family History Mother High blood pressure Heart disease High cholesterol Thyroid disease Stroke Father Dementia Depression Brother Myocardial infarction Esophageal cancer Social History Narrative: -Johnny Smoking Status: Never smoker Do you use any of these nicotine containing products: None Second hand tobacco smoke exposure: No How often do you have a drink containing alcohol: never AUDIT-C Alcohol total score: 0 Non-prescribed substance use: marijuana (any form) Caffeine: No Are you now , , , , never or living with a partner: Social isolation score (0-1 are the most socially isolated patients): 1 Exam Narrative: Exam Narrative: EXAM GENERAL: Patient appears comfortable and well. EYES: No scleral icterus. LYMPH: No supraclavicular or cervical lymphadenopathy. SKIN: Visible skin seen during exam normal or with benign process only. EXT: No dependent lower extremity pedal edema. HEART: Regular rate and rhythm with no murmurs, rubs, or gallops. LUNGS: Clear to auscultation bilaterally with no crackles or wheezes. ABD: Soft, non tender, non distended. PSYCH: Good eye contact, speech is not pressured. Const: Vital Signs, click to edit/add: Vital Signs - 24 hr 02/27/24 04:48 02/27/24 05:00 Temperature 99.6 F Pulse Rate [Right Pulse Oximeter] 84 Respiratory Rate 20 Blood Pressure [Ri ght Upper Arm] 133/66 Pulse Oximetry 99 97 Oxygen Delivery Me thod Room Air Course Course ED Course: Patient seen and examined. CBC basic metabolic panel pending. 1 L normal saline 4 mg of IV Zofran given. Vital Signs Vital signs: Initial Vital Signs Temperature 99.6 F 02/27/24 04:48 Temperature Source Temporal Artery Scan 02/27/24 04:48 Pulse Rate 84 02/27/24 04:48 Respiratory Rate 20 02/27/24 04:48 Blood Pressure 133/66 02/27/24 04:48 Blood Pressure Mean 88 02/27/24 04:48 Blood Pressure Position Supine 02/27/24 04:48 Pulse Oximetry 99 02/27/24 04:48 Oxygen Delivery Method Room Air 02/27/24 04:48 Vital Signs Temperature 99.6 F 02/27/24 04:48 Pulse Rate 84 02/27/24 04:48 Respiratory Rate 20 02/27/24 04:48 Blood Pressure 133/66 02/27/24 04:48 Pulse Oximetry 99 02/27/24 04:48 Oxygen Delivery Method Room Air 02/27/24 04:48 Temperature 99.6 F 02/27/24 04:48 Pulse Rate 84 02/27/24 04:48 Respiratory Rate 20 02/27/24 04:48 Blood Pressure 133/66 02/27/24 04:48 Pulse Oximetry 97 02/27/24 05:00 Oxygen Delivery Method Room Air 02/27/24 04:48 Medications Administered Medications: Generic Name Dose Route Start Last Admin Trade Name Freq PRN Reason Stop Dose Admin Sodium Chloride 1,000 mls @ 1,000 mls/hr 02/27/24 04:54 02/27/24 04:59 0.9 % Sodium Chloride 1000 Ml IV 02/27/24 05:53 1,000 mls/hr .Q1H KALLIE Administration Discontinued Medications Generic Name Dose Route Start Last Admin Trade Name Jose Carlos PRN Reason Stop Dose Admin Ondansetron HCl 4 mg 02/27/24 04:54 02/27/24 04:59 Ondansetron 2 Mg/Ml Inj IVP 02/27/24 04:55 4 mg ONCE ONE Administration Medical Decision Making MDM Narrative Medical decision making narrative: Patient is a 73-year-old woman comes in 3 days after her hip replacement with no pain or redness at the left hip but significant nausea and vomiting. We did do CBC and electrolytes which were normal. 1/2 L of normal saline were given as well as 4 mg of IV Zofran 0.5 mg of IV Dilaudid. Her symptoms have resolved she now feels well. We did discharge her home with oral dissolving Zofran to continue current medication follow-up with her primary physician as needed. Differential diagnosis includes but not limited to gastroenteritis small-bowel obstruction postoperative nausea and vomiting. Lab Data Labs: Lab Results 02/27/24 Range/Units 05:00 WBC 9.89 (4.50-11.00) K/uL RBC 3.01 L (4.00-5.20) m/uL Hgb 9.6 L (12.0-16.0) gm/dL Hct 28.7 L (33.0-51.0) % MCV 95 (80-100) fL MCH 32 (26-34) pg MCHC 33 (32-36) gm/dL RDW Coeff of Georgina 13.1 (11.5-15.5) % Plt Count 211 (140-440) K/uL Neut % (Auto) 73.2 H (42.0-72.0) % Lymph % (Auto) 17.6 L (20-44) % [place] % (Auto) 6.5 (0.0-11.0) % Eos % (Auto) 1.4 (0.0-7.0) % Baso % (Auto) 0.2 (0.0-3.0) % Neut # (Auto) 7.20 H (1.7-7.0) K/uL Lymph # (Auto) 1.70 (0.90-2.90) K/uL [place] # (Auto) 0.60 (0.00-0.90) K/UL Eos # (Auto) 0.14 (0.00-0.50) K/uL Baso # (Auto) 0.02 (0.00-0.30) K/uL Abs Immat Gran (auto) 0.11 (0.00-0.30) K/uL Imm/Tot Granulo (auto) 1.1 % Sodium 135 (135-149) mmol/L Potassium 3.6 (3.6-5.1) mmol/L Chloride 104 (96-114) mmol/L Carbon Dioxide 27 (20-32) mmol/L Anion Gap 4 L (7-15) mEq/L BUN 11 (7-30) mg/dL Creatinine 0.5 (0.5-1.5) mg/dL Estimated Creat Clear 40.81 Estimated GFR 100 ml/min Glucose 109 (60-115) mg/dL Calcium 8.8 (8.4-10.6) mg/dL Discharge Plan Discharge Clinical Impression: Vomiting Patient Disposition: Home, Self-Care Condition: Stable Instructions: Acute Nausea and Vomiting (ED) Additional Instructions: Zofran 0 DT as directed Continue current medication and activity Report any change in her symptoms to her primary physician. Activity Level: No Restrictions Discharge Diet: Regular Prescriptions: No Action celecoxib 100 mg capsule 100 mg PO BID Hold Instructions: Resume on 03/22/24. restart after stopping Xarelto omeprazole 20 mg capsule,delayed release(DR/EC) 20 mg PO DAILY sertraline 50 mg tablet 50 mg PO DAILY acetaminophen [Tylenol Extra Strength] 500 mg tablet 1,000 mg PO Q6H PRN sennosides [Senna Lax] 8.6 mg Tablet 17.2 mg PO BID PRN (Reason: constipation) Qty: 100 0RF aspirin [Aspirin Childrens] 81 mg tablet,chewable 81 mg PO BID 30 Days Qty: 60 0RF oxycodone 5 mg Tablet 2.5 - 5 mg PO Q4-6H MDD 6 tabs per day PRN (Reason: Pain) Qty: 42 0RF Rx Instructions: Minimize. Discontinue as soon as possible Follow Up/Referrals: Maria E Nix, [Primary Care Provider] - Stand Alone Forms: MyHealth Info Instructions
[2024-02-27] MEDS: ONDANSETRON 2 MG/ML inj 4 MG IVP (04:59)
[2024-02-27] MEDS: 0.9 % SODIUM CHLORIDE 1000 ml 1,000 ML IV (04:59)
[2024-02-27 05:00] VITALS: O2SAT 97
[2024-02-27 05:05] VITALS: BP 127/77; PULSE 73; RESP 20; O2SAT 95
[2024-02-27 05:06] LABS: Basophils Absolute Auto 0.02 K/uL (0.00-0.30); Basophils Percent Auto 0.2 % (0.0-3.0); Eosinophils Absolute Auto 0.14 K/uL (0.00-0.50); Eosinophils Percent Auto 1.4 % (0.0-7.0); Hematocrit 28.7 % (33.0-51.0); Hemoglobin* 9.6 gm/dL (12.0-16.0); Immature Granulocytes Abs Auto 0.11 K/uL (0.00-0.30); Immature Granulocytes Pct Auto 1.1 %; Lymphocytes Percent Auto 17.6 % (20-44); Mean Corpuscular HGB Conc 33 gm/dL (32-36); Mean Corpuscular Hemoglobin 32 pg (26-34); Mean Corpuscular Volume 95 fL (80-100); Monocytes Percent Auto 6.5 % (0.0-11.0); Neutrophils Percent Auto 73.2 % (42.0-72.0); Platelet Count* 211 K/uL (140-440); RDW Coefficient of Variation % 13.1 % (11.5-15.5); Red Blood Count 3.01 m/uL (4.00-5.20); White Blood Count* 9.89 K/uL (4.50-11.00)
[2024-02-27 05:08] LABS: Slide Review Reflex No
--- OUTSIDE RECORDS SUMMARY | 2024-02-27 05:17 | XMS_ITS | Referral Summary ---
Author Name Unknown Organization [facility] Address [address] [place] [address] Care Team Providers Care Candy Vendor Name Role Phone Elsewhere, Pcp Primary Care Provider Unavailabl e Source Comments Patient records contain information from all sites at [facility]. For routine questions regarding patient records, call [phone] during business hours, M-F 8:00 AM - 5:00 PM Central Time. Record requests for emergency care only can be directed to [phone] at any time.[facility] Allergies Active Allergy Reactions Criticality Noted Date Comments Bee Venom Protein (Honey Bee) Swelling 08/16/2014 Hymenoptera Allergenic Extract Edema (Reselect Reaction) 01/14/2016 Swelling and pain Pollen Extracts Other (see comments) Medium 08/31/2017 Medications Medication Sig Dispensed Refills Start Date End Date Status omega-3 fatty acids 500 mg capsule Take 500 capsules by mouth. Is in Doterra multipack 0 Active sertraline (ZOLOFT) 50 mg tabletIndications:An xiety Generalized Disorder TAKE 1 TABLET BY MOUTH EVERY DAY 90 tablet 3 06/25/2022 Active Active Problems Patient Care Coordination No te Formatting of this note migh t be different from the original. Authorization to Disclose Protected Health Information to Johnny Rodriguez () Problem Noted Date Diagnosed Date Constipation 05/07/2022 Depression Major Recurrent Moderate 11/26/2021 Anxiety Generalized Disorder 05/15/2021 Disturbance Sleep 06/18/2020 Asymptomatic Varicose Veins Of Bilateral Lower E xtremities 10/30/2019 Primary Osteoarthritis Lumbar Spine 01/03/2018 Diverticulitis Colon 12/26/2014 Herpes Genitalis 07/08/2011 Resolved Problems Problem Noted Date Diagnosed Date Resolved Date Hyperopia Right 01/04/2019 04/26/2019 Overview: Added automatically from request for surgery [id number] 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/2018 04/26/2019 Chronic Pain Syndrome 05/10/20182018 Immunizations Name Administration Dates Next Due Influenza, Unspecified 10/30/2021,12/09/2016 PPSV23(Discontinued) 05/07/2022(Deferred : Patient decision),06/18/2020 RZV (SHINGRIX) 05/07/2022(Deferred: Patient manuel way) SARS-COV-2 (COVID-19) - PFIZ ER (Discontinued)(12 years or older) 05/07/2022(Deferred: Patient decision) Td (Adult), adsorbed 05/06/2003 Td, (Adult) Unspecified 06/05/2004 Tdap 04/24/2013 influenza high dose (65 year s or older) (PF) 10/30/2019 Social History Tobacco Use Types Packs/Day Years Used Date Smoking Tobacco: Never Smokeless Tobacco: Never Alcohol Use Standard Drinks/Week Comments No 0 (1 standard drink = 0.6 oz pur e alcohol) Humiliation, Afraid, Rape, and Kick questionnair e Answer Date Recorded Within the last year, have y ou been afraid of your partner or ex-partner? No 05/07/2022 Within the last year, have y ou been humiliated or emotionally abused in other ways by your partner or ex-partner? No Within the last year, have y ou been kicked, hit, slapped, or otherwise physically hurt by your partner or ex-partner? No 05/07/2022 Within the last year, have y ou been raped or forced to have any kind of sexual activity by your partner or ex-partner? No 05/07/2022 Social Connection and Isolat ion Panel [NHANES] Answer Date Recorded In a typical week, how many times do you talk on the phone with family, friends, or neighbors? More than three times a week 05/07/2022 How often do you get togethe r with friends or relatives? More than three times a week 05/07/2022 How often do you attend chur ch or jew services? More than 4 times per year 05/07/2022 Do you belong to any clubs o r organizations such as yazidism groups, unions, fraternal or athletic groups, or school groups? Yes 05/07/2022 How often do you attend meet ings of the clubs or organizations you belong to? More than 4 times per year 05/07/2022 Are you , , di vorced, , never , or living with a partner? 05/07/2022 AUDIT-C Answer Date Recorded Q1: How often do you have a drink containing alc ohol? Never 05/07/2022 Average Number of Drinks Not on file 022 Frequency of Binge Drinking Not on file 04/22 Overall Financial Resource Strain (CARDIA) Answe r Date Recorded How hard is it for you to pa y for the very basics like food, housing, medical care, and heating? Not hard at all 05/07/2022 PHQ-2 Answer Date Recorded PHQ-2 Score 1 05/07/2022 [facility] - Occupational Stress Questionnaire Answer Date Recorded Do you feel stress - tense, restless, nervous, or anxious, or unable to sleep at night because your mind is troubled all the time - these days? Only a little 05/07/2022 Exercise Vital Sign Answer Date Recorde d On average, how many days pe r week do you engage in moderate to strenuous exercise (like a brisk walk)? 5 days 05/07/2022 On average, how many minutes do you engage in exercise at this level? 60 min 05/07/2022 Hunger Vital Sign Answer Date Recorded Within the past 12 months, y ou worried that your food would run out before you got the money to buy more. Never true 05/07/20 22 Within the past 12 months, t he food you bought just didn't last and you didn't have money to get more. Never true 05/07/2022 PRAPARE - Transportation Answer Date Re corded In the past 12 months, has l ack of transportation kept you from medical appointments or from getting medications? No 04/22 In the past 12 months, has l ack of transportation kept you from meetings, work, or from getting things needed for daily living? No 05/07/2022 Housing Stability Vital Sign Answer Sky e Recorded In the last 12 months, was t here a time when you were not able to pay the mortgage or rent on time? No 05/07/2022 In the last 12 months, how many places have you lived? 1 05/07/2022 In the last 12 months, was t here a time when you did not have a steady place to sleep or slept in a fci (including now)? No 05/07/2022 Depression Answer Date Recor ded PHQ-9 Total Score (max 27) 1 05/07 Nutrition Answer Date Recorded Nutrition: EVOO Fat Source Yes 05/07 On average, how many serving s of fruits and vegetables do you eat per day (serving size is equal to 1 cup or approximately the size of a tennis ball)? 2-3 05/07/2022 Dental Answer Date Recorded Dental: Regular Dentist No 05/07/20 Employment Answer Date Recorded Employment status Employed and actively working without restrictions 05/07/2022 Education Answer Date Recorded What is the highest level of school you have completed or the highest degree you have received? Associate degree: occupational, technical, or vocational program 04/26/2019 Sex and Gender Information Value Date Recorded Sex Assigned at Female 09/29/2017 8:12 AM ENVIRONMENTAL EMERGENCIES ASSISTANT Gender Identity Female 09/29/2017 8:12 AM ENVIRONMENTAL EMERGENCIES ASSISTANT Sexual Orientation Straight 09/29/2017 8: 12 AM ENVIRONMENTAL EMERGENCIES ASSISTANT Last Filed Vital Signs Vital Sign Reading Time Taken Comments Blood Pressure 113/67 05/07/2022 12:25 PM CDT average of 3 Pulse 65 05/07/2022 12:25 PM CDT Temperature 36.2 ??C (97.2 ??F) 05/07/2022 1 2:25 PM CDT Respiratory Rate 16 05/07/2022 12:2 5 PM CDT Oxygen Saturation 96% 05/07/2022 12: 25 PM CDT Inhaled Oxygen Concentration - - Weight 52.7 kg (116 lb 4.7 oz) 05/07/20 12:25 PM CDT Height 159 cm (5' 2.6) 05/07/2022 12:2 5 PM CDT Body Mass Index 20.87 05/07/2022 12:25 PM CDT Plan of Treatment Not on file Medical Devices Implanted Type Area Agate Setter Device Identifier Shelf Expiration Date Model / Serial / Lot Silicone Implanted: (Quantity not on file) Breast Implant Bilateral: Breast Care Teams Candy Vendor Relationship Specialty Start Date End Date Elsewhere, Pcp PCP - General Internal Medicine 05/28/22
--- OUTSIDE RECORDS SUMMARY | 2024-02-27 05:17 | XMS_ITS ---
Author Name Unknown Organization [facility] Address [address] [place] [address] Care Team Providers Care Paraeducator Name Role Phone Unavailable Unavailable Unavailable Surgery Details Not on file Complications Check Surgery Details section. Procedure Estimated Blood Loss Check Surgery Details section. Procedure Findings Check Surgery Details section. Procedure Specimens Taken Check Surgery Details section.
--- OUTSIDE RECORDS SUMMARY | 2024-02-27 05:17 | XMS_ITS | Clinical Summary ---
Author Name Unknown Organization [employer] [facility] Address [place], [place] [address] Care Team Providers Care Agile Project Manager Name Role Phone Maria E Nix Primary Care Provider Allergies Active Allergy Reactions Criticality Noted Date Comments Hymenoptera Allergenic Extract Edema 01/14/2016 Swelling and pain Unlisted Allergen (Include Detail In Comments) Other - Describe In Comment Field 01/16/2016 Seasonal pollens, nasal stuffiness Medications Medication Sig Dispensed Refills Start Date End Date Status omeprazole 20 mg tabletIndication s:Chronic GERD,Oropharynge al dysphagia Take 1 Tablet (20 mg) by mouth once daily before a meal. 90 Tablet 3 05/07/2023 Active medication order composer Medical Marijuana 0 08/04/2023 Active sertraline (ZOLOFT) 50 mg tabletIndication s:Depression, recurrent (HC) TAKE 1 TABLET BY MOUTH EVERY DAY 90 Tablet 3 08/18/2023 Active celecoxib (CELEBREX) 100 mg capsuleIndicatio ns:Bilateral hip joint arthritis,Disc degeneration, lumbar Take 1 Capsule (100 mg) by mouth two times daily with meals. 60 Capsule 2 01/21/2024 Active DOCOSAHEXANOIC ACID/EPA (FISH OIL ORAL) Take 1 Tablet by mouth once daily. 02/04/2024 Discontinued (*Med complete/Reg imen complete/Lev el of care change) Active Problems Problem Noted Date Diagnosed Date Depression, recurrent 01/21/2024 Last Assessment & Plan: chart update only Encounters Date Type Department Care Team Description 02/08/2024 Orders Only [facility] [address] [place] [address] Maria E Nix DO 1 scan: (1-Ord) NFLD-EKG-3.15.24 02/04/2024 10:15 AM CDT Preop Visit [facility] [address] [place] [address] Maria E Nix DO Preoperative Exam (left hip surgery 02/24/24/[facility] [place]) 02/04/2024 Travel 01/21/2024 9:50 AM QUALITY ASSURANCE REPRESENTATIVE Office Visit [facility] [address] [place] [address] Maria E Nix DO Back Pain/problem (OMT/) 01/21/2024 Travel 12/17/2023 10:30 AM QUALITY ASSURANCE REPRESENTATIVE Procedure Only [facility] [address] [place] [address] Lucia Ricks L Ac Acupuncture 12/17/2023 Travel from Last 3 Months Immunizations Name Administration Dates Next Due COVID-19 vaccine (ThinkGrid 30mcg/0.3mL) PF, MDV 10/30/2021 Influenza, High-dose Inactivated 10/30/2019 Influenza, High-dose Quadriv alent Inactivated 10/30/2021 Influenza, IIV4 12/09/2016 Pneumococcal Conj 20-valent (Prevnar 20) 05/12/2023 Pneumococcal Poly,23-Valent (Pneumovax) 05/07/2022(Deferred: Patient Refused),06/18/2020 Td (Age >=7 Years) 06/05/2004,05/06/2003 Tdap 04/24/2013 Zoster, Unspecified Formulation 05/07/2022(Defer red: Patient Refused) Family History Medical History Relation Name Comments No Known Problems Brother 1 No Known Problems Brother 2 Esophageal cancer Brother 3 Heart attack Brother 4 No Known Problems Daughter Dementia Father Lewy Body demen tia Depression Father depression Heart Disease Mother Heart failure Mother Hyperlipidemia Mother Hypertension Mother Stroke Mother Thyroid Disease Mother No Known Problems Sister 1 No Known Problems Sister 2 No Known Problems Sister 3 Other Son stomach Relation Name Status Comments Brother 1 Alive Brother 2 Alive Brother 3 Brother 4 Daughter Alive Father Mother Sister 1 Alive Sister 2 Alive Sister 3 Alive Son Alive Social History Tobacco Use Types Packs/Day Years Used Date Smoking Tobacco: Never Smokeless Tobacco: Never Tobacco Cessation:Counseling Given: Yes Alcohol Use Standard Drinks/Week Comments No 0 (1 standard drink = 0.6 oz pur e alcohol) quit 11/29 PHQ-2 Answer Date Recorded PHQ-2 TOTAL SCORE 1 05/12/2023 Social Connections Answer Date Recorded Frequency of Communication with Friends and Fami ly 0 08/17/2023 Financial Resource Strain Answer Date R ecorded Difficulty of Paying Living Expenses 3 08/17/2023 Difficulty of Paying Living Expenses Not on file 08/17/2023 Food Insecurity Answer Date Recorded Worried About Running Out of Food in the Last Ye ar 1 08/17/2023 Transportation Needs Answer Date Record ed Lack of Transportation (Medical) 1 08/17/2023 Housing Stability Answer Date Recorded Unable to Pay for Housing in the Last Year 1 08/17/2023 Sex and Gender Information Value Date Recorded Sex Assigned at Not on file Gender Identity Not on file Sexual Orientation Not on file Obstetrics History Last Filed Vital Signs Vital Sign Reading Time Taken Comments Blood Pressure 112/66 02/04/2024 10:24 AM CDT Pulse 64 02/04/2024 10:24 AM CDT Temperature 36.3 ??C (97.3 ??F) 02/04/2024 10:24 AM C DT Respiratory Rate 20 11/13/2021 10:28 AM QUALITY ASSURANCE REPRESENTATIVE Oxygen Saturation 98% 02/04/2024 10:24 AM CDT Inhaled Oxygen Concentration - - Weight 53.5 kg (118 lb) 02/04/2024 10:24 AM CDT Height 159.4 cm (5' 2.76) 02/04/2024 10:24 AM C DT Body Mass Index 21.07 02/04/2024 10:24 AM CDT Plan of Treatment Upcoming Encounters Date Type Department Care Team (Late st Contact Info) Description 03/02/2024 8:20 AM CDT Office Visit [facility] [address] [place] [address] Vargas Cintron MD [address] [place] [address] Health Maintenance Due Date Last Done Comments Zoster (shingles) series for age 50+ (1 of 2) 2002 Tetanus booster 04/24/2023 04/24/2013, 05/22, 05/06/2003 COVID-19 vaccine series ( season) 2023 10/30/2021, 02/04/2021, 01/14/2021 Medicare Wellness for age 65+ 05/12/2024 05/12/2023 Depression screening for age 12+ 05/13/2024 05/13/2023, 05/12/2023, 12/18/2022, Additional history exists Mammogram for age 45-75 05/18/2024 05/18/20 23, 03/28/2008, 02/26/2005 Influenza for age 65+ 07/23/2024 10/30/2021 , 10/30/2019, 12/09/2016 BMI (ht and wt on same day) for age 18+ 02/03/2025 02/04/2024, 05/12/2023, 05/13/2022 Lipids for age 45-75 05/12/2028 05/12/2023, 02/29/20 08 Colonoscopy through age 75 10/28/203110/28, 04/25/2008, 04/25/2008 Tdap Completed 04/24/2013 Hepatitis C screening for ag e 18-79 Completed 05/12/2023 Pneumococcal series for age 65+ Completed 3, 06/18/2020 DEXA/DXA scan for age 65+ Completed 05/13/2023 Procedures Procedure Name Priority Date/Time Associated Diagnosis Comments [place] READING EKG - NO CHARGE, COMP ONLY Routine 02/08/2024 10:07 AM CDT Pre-op exam EKG 12 LEAD Routine 02/08/2024 10:07 AM CDT Pre-op exam URINALYSIS MICROSCOPIC Routine 02/04/2024 11:13 AM CDT Pre-op exam UA W/ SEDIMENT EXAM REFLEXED PER CRITERIA Routine 02/04/2024 11:13 AM CDT Pre-op exam HEMOGLOBIN Routine 02/04/2024 11:11 AM CDT Pre-op exam ACUPUNCTURE PLAN OF CARE Routine 12/17/2023 1:50 PM QUALITY ASSURANCE REPRESENTATIVE Other low back pain XR MAMMO BILAT SCREEN IMPLANT Routine 05/18/2023 10:47 AM CDT Breast cancer screening by mammogram XR DXA BONE DENSITY 2 SITES AXIAL Routine 05/13/2023 2:08 PM CDT Postmenopausal LC HCV ANTIBODY RFX TO QUANT PCR Routine 05/12/2023 10:58 AM CDT Need for hepatitis C screening test LIPID PANEL W REFLEX MEASURED LDL Routine 05/12/2023 10:58 AM CDT Lipid screening COLONOSCOPY 10/28/2021 10:10 AM QUALITY ASSURANCE REPRESENTATIVE from Last 3 Months or Most Recently Relevant to Health Maintenance Results * EKG 12 LEAD (02/08/2024 10:07 AM CDT) Maria E Nix DO EKG ORD * IL READING EKG - NO CHARGE, COMP ONLY (02/08/2024 10:07 AM CDT) Maria E Nix DO PB - PROVIDER READI NGS * URINALYSIS MICROSCOPIC (02/04/2024 11:13 AM CDT) RBC 0-2 0-2, None Seen /HPF 02/04/2024 11:20 AM CDT [facility] WBC 0-2 0-2, 3-5, None Seen /HPF 02/04/2024 11:20 AM CDT [facility] BACTERIA Few None Seen, Rare, Few Bacteria/H PF 02/04/2024 11:20 AM CDT [facility] EPITHELIAL CELLS Few None Seen, Few Epi/HPF 02/04/2024 11:20 AM CDT [facility] Urine URINE SPECIMEN / Unknown Non-Blood / Unknown 02/04/2024 11:13 AM CDT 02/04/2024 11:13 AM CDT Maria E Quin Nix DO URINE [facility] [address] [place] [address], * (ABNORMAL) UA W/ SEDIMENT EXAM REFLEXED PER CRITERIA (02/04/2024 11:13 AM CDT) COLOR Yellow Yellow Color 02/04/2024 11:20 AM CDT [facility] CLARITY Clear Clear Clarity 02/04/2024 11:20 AM CDT [facility] SPECIFIC GRAVITY,URINE 1.020 1.010, 1.015, 1.020, 1.025 02/04/2024 11:20 AM CDT [facility] PH,URINE 6.5 6.0, 7.0, 8.0, 5.5, 6.5, 7.5, 8.5 02/04/2024 11:20 AM CDT [facility] UROBILINOGEN, QUALITATIVE Normal Normal EU/dl 02/04/2024 11:20 AM CDT [facility] PROTEIN, URINE Negative Negative mg/dL 02/04/2024 11:20 AM CDT [facility] GLUCOSE, URINE Negative Negative mg/dL 02/04/2024 11:20 AM CDT [facility] KETONES,URINE Negative Negative mg/dL 02/04/2024 11:20 AM CDT [facility] BILIRUBIN,URI NE Negative Negative 02/04/2024 11:20 AM CDT [facility] OCCULT BLOOD,URINE Trace(A) Negative 02/04/2024 11:20 AM CDT [facility] NITRITE Negative Negative 02/04/2024 11:20 AM CDT [facility] LEUKOCYTE ESTERASE Trace(A) Negative 02/04/2024 11:20 AM CDT [facility] Urine URINE SPECIMEN / Unknown Non-Blood / Unknown 02/04/2024 11:13 AM CDT 02/04/2024 11:13 AM CDT Maria E Nix DO URINE Performing Organization Address City/[facility]/ZIP Co de Phone Number [facility] [address] [place] [address], * HEMOGLOBIN (02/04/2024 11:11 AM CDT) HEMOGLOBIN 13.2 12.0 - 16.0 g/dL 02/04/2024 11:20 AM CDT [facility] MCV 95 80 - 100 fL 02/04/2024 11:20 AM CDT [facility] Blood BLOOD SPECIMEN / Unknown Venipuncture / Unknown 02/04/2024 11:11 AM CDT 02/04/2024 11:12 AM CDT Maria E Nix DO HEMATOLOGY Performing Organization Address City/[facility] Co de Phone Number [facility] [address] [place] [address], * XR MAMMO BILAT SCREEN IMPLANT (05/18/2023 10:47 AM CDT) Anatomical Region Laterality Modality BREASTS, Breast Left, Breast Right Bilateral Mammography Impressions 05/18/2023 3:27 PM CDT ??There is no radiographic evidence for malignancy. ??Recommend annual mammograms. MAMMOGRAM ASSESSMENT: ??ACR 2 Benign PATIENTS: You will also receive a letter with your examination results in an easy to read format. ??If you have questions about your results, please contact your referring provider. Narrative 05/18/2023 3:27 PM CDT For Patients: As a result of the 21st Century Cures Act, medical imaging exams and procedure reports are released immediately into your electronic medical record. You may view this report before your referring provider. If you have questions, please contact your health care provider. XR MAMMO BILAT SCREEN IMPLANT [[id number]] CLINICAL HISTORY: ??This is an asymptomatic 72 y.o. patient. INDICATION FOR EXAM: Mammogram Screening. TECHNIQUE: CC & MLO views were obtained. Implant displacement views were obtained. This study was evaluated with the assistance of Computer-Aided Detection. COMPARISON FILMS: Yes 04/16/21 [facility] 05/23/20 [facility] FINDINGS: ??The breasts are heterogeneously dense, which may obscure small masses. ??No suspicious masses or microcalcifications. ??There are breast implant(s) present.. Maria E Nix DO MAMMO * XR DXA BONE DENSITY 2 SITES AXIAL [[id number]] (05/13/2023 2:08 PM CDT) Anatomical Region Laterality Modality Spine, HIPS, HIPL, HIPR Other Impressions 05/27/2023 12:47 PM CDT Normal bone density. RECOMMENDATIONS: The National Osteoporosis Foundation recommends pharmacologic treatment for patients with T-scores of -2.5 or less, patients with prior history of fragility fractures, or patients with 10-year probability of greater than 3% at hips or greater than 20% of suffering major osteoporotic fractures. Recommend continued optimization of calcium and vitamin D intake through dietary means and/or supplementation and regular exercise. Repeat scan recommended in 3-5 years. Meka Benson PA-C [facility] 05/27/2023 Narrative 05/27/2023 12:47 PM CDT For Patients: Results are automatically released [facility] once available, in compliance with federal regulations. This means that you may see your results before your provider has had a chance to review them. Please allow 2-3 business days for your provider to comment on the results. XR DXA Bone Mineral Density (BMD) EXAM LOCATION: [facility] [address] [facility] [address] PATIENT NAME: Alona RODRIGUEZ DATE OF : 1950 EXAM DATE: 05/13/2023 REQUESTING PROVIDER: Maria E Nix DO GENDER AT : female HEIGHT: 5' 2.8 (05/12/2023) WEIGHT: ??112 lb (05/12/2023) MENOPAUSAL STATUS: Postmenopausal RACE/ETHNICITY: White RISK FACTORS: Weight < 127 lbs. and White Race CURRENT MEDICATION FOR BONE LOSS: NONE INDICATION: Post-Menopause COMPARISON DATE(S): None DXA scans are compared to prior studies for a patient only when the two (or more) studies were performed on the same scanner. It is not possible to compare data generated on one scanner to data from another because there are not standards in DXA equipment. This applies even if the two scanners are made by the same motion picture printer. PROCEDURE: Dual-energy x-ray absorptiometry performed with routine technique. Reporting is completed in the form of a T-score. The T-score represents the standard deviation from peak bone mass based on young healthy adult. A Z-score is used for diagnosis in premenopausal women, and for men under the age of 50. FINDINGS: RESULT LUMBAR SPINE L2 - L4 ??BMD: 1.229 g/cm2 T-Score: + 0.1 Z-Score: + 2.3 Change from prior: ??None RESULTS FEMUR Left femoral neck BMD: 0.919 g/cm2 T-Score: - 0.9 Z-Score: + 1.2 Change from prior: ??None Right femoral neck BMD: 0.950 g/cm2 T-Score: - 0.6 Z-Score: + 1.4 Change from prior: ??None Left hip BMD: 1.016 g/cm2 T-Score: + 0.1 Z-Score: + 1.9 Change from prior: ??None Right hip BMD: 1.008 g/cm2 T-Score: + 0.0 Z-Score: + 1.8 Change from prior: ??None WHO criteria: Normal: T-score at or above -1 SD Osteopenia: T-score between -1.1 and -2.4 SD Osteoporosis: T-score at or below -2.5 SD Maria E Nix DO DEXA * LC HCV ANTIBODY RFX TO QUANT PCR (05/12/2023 10:58 AM CDT) Pathologist [facility] HCV Ab Non Reactive Non Reactive 05/14/2023 10:10 AM CDT [facility] Blood BLOOD SPECIMEN / Unknown Venipuncture / Unknown 05/12/2023 10:58 AM CDT 05/12/2023 10:59 AM CDT Narrative [facility] ([facility]) - 05/14/2023 10:10 AM CDT Performed at: ??01 - [address] ??[id number] Biopsychologist: Bry Fairbanks MD, Phone: ??[phone] Maria E Nix DO [facility] [place] [address], * (ABNORMAL) LIPID PANEL W REFLEX MEASURED LDL (05/12/2023 10:58 AM CDT) CHOLESTEROL,TOTAL 256(H) 100 - 199 mg/dL 05/12/2023 6:23 PM CDT [facility] [employer] LAB[facility]AT[facility] Comment: Cholesterol, Total Reference Ranges Desirable <200 mg/dL Borderline 200-239 mg/dL High >=240 mg/dL TRIGLYCERIDES 83 <150 mg/dL 05/12/2023 6:23 PM CDT [facility] HDL CHOLESTEROL 58 >40 mg/dL 6:23 PM CDT [facility] NON-HDL CHOLESTEROL 198(H) <145 mg/dl 05/12/2023 6:23 PM CDT [facility] CHOL/HDL RATIO 4.41 <4.50 05/12/2023 6:23 PM CDT [facility] LDL CHOLESTEROL 181(H) <=130 mg/dL 05/12/2023 6:23 PM CDT [facility] VLDL CHOLESTEROL 17 <=30 mg/dL 05/12/2023 6:23 PM CDT [facility] PROVIDER ORDERED STATUS RANDOM 05/12/2023 6:23 PM CDT [facility] Blood BLOOD SPECIMEN / Unknown Venipuncture / Unknown 05/12/2023 10:58 AM CDT 05/12/2023 10:59 AM CDT Maria E Tsai Dinah FABIAN CHEMISTRY [facility] [address] [place] [address], [place] * COLONOSCOPY (10/28/2021 10:10 AM QUALITY ASSURANCE REPRESENTATIVE) 10/28/2021 10:1 0 AM QUALITY ASSURANCE REPRESENTATIVE Narrative Transcriptions Gadiel Anand MD - 10/28/2021 11:01 AM CST Patient Name: Alona Rodriguez Procedure Date: 10/28/2021 Gender: Female Date of : 1950 Admit Type: Ambulatory Procedure: Colonoscopy Proceduralist: Parmjit Anand [facility] Indications/Pre-Op Diagnosis: Generalized abdominal pain Medications: Propofol per Anesthesia Procedure Description: The procedure, indications, potential complications, (bleeding, perforation, infection, adverse medication reaction, missed lesionsor polyps) and alternatives available were explained to the patient, who appeared to understand and indicated this. Opportunity for questionswas provided and informed consent obtained. The colonoscopy was passed through the anus and advanced to thececum, identified by appendiceal orifice and ileocecal valve. Thecolonoscopy was somewhat difficult due to a tortuous colon. Successful completionof the procedure was aided by applying abdominal pressure. The patient tolerated the procedure well. The quality of the bowel preparationwas evaluated using the BBPS (Hanna Bowel Preparation Scale) with scores of: Right Colon = 3, Transverse Colon = 3 and Left Colon = 3 (entire mucosa seen well with no residual staining, small fragments of stoolor opaque liquid). The total BBPS score equals 9. Complications: No immediate complications. Estimated Blood Loss & Specimen: Estimated blood loss: none. Specimen collected: None Findings: The perianal and digital rectal examinations were normal. Pertinent negatives include normal sphincter tone. The terminal ileum appeared normal. Many small-mouthed diverticula were found in the sigmoid colon and descending colon. The exam was otherwise without abnormality on direct and retroflexion views. Impressions/Post-Op Diagnosis: - The examined portion of the ileum was normal. - Diverticulosis in the sigmoid colon and in the descending colon. - The examination was otherwise normal on direct and retroflexionviews. - No specimens collected. Recommendation: - Repeat colonoscopy in 10 years for screening purposes. Moderate Sedation: Deep sedation per anesthesia. Parmjit Anand, 10/28/2021 11:01:38 AM This report has been signed electronically. Note Initiated On: 10/28/2021 10:10 AM Gadiel Anand MD PROCEDURE ORD from Last 3 Months or Most Recently Relevant to Health Maintenance Advance Directives * Full Code (Latest Code Status on File) Date Activated Date Inactivated Comments 10/28/2021 7:24 AM 10/28/2021 2:33 PM Question Answer Comments Code Status Discussion: Reviewed Preferences * Full Code Date Activated Date Inactivated Comments 06/21/2019 7:53 AM 06/21/2019 2:25 PM * Full Code Date Activated Date Inactivated Comments 01/29/2016 10:16 AM 01/29/2016 4:36 PM * Full Code Date Activated Date Inactivated Comments 01/29/2016 7:00 AM 01/29/2016 10:16 AM * Full Code Date Activated Date Inactivated Comments 01/16/2016 7:29 AM 01/16/2016 12:24 PM Care Teams Agile Project Manager Relationship Specialty Start Date End Date Maria E Nix [place] [address] [address] [place] [address] PCP - General Family Practice 06/05/22
--- OUTSIDE RECORDS SUMMARY | 2024-02-27 05:17 | XMS_ITS | Clinical Summary ---
Author Name Unknown Organization [facility] Address [address] [place] [address] Care Team Providers Care Reciprocating Drill Operator Name Role Phone Elsewhere, Pcp Primary Care Provider Unavailabl e Source Comments Patient records contain information from all sites at [facility]. For routine questions regarding patient records, call [phone] during business hours, M-F 8:00 AM - 5:00 PM Central Time. Record requests for emergency care only can be directed to [phone] at any time.[facility] Allergies Active Allergy Reactions Criticality Noted Date [...] Overview: Added automatically from request for surgery [id number] 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/2018 04/26/2019 Chronic Pain Syndrome 05/10/20182018 Immunizations Name Administration Dates Next Due Influenza, Unspecified 10/30/2021,12/09/2016 PPSV23(Discontinued) 05/07/2022(Deferred : Patient decision),06/18/2020 RZV (SHINGRIX) 05/07/2022(Deferred: Patient dec rayna) SARS-COV-2 (COVID-19) - PFIZ ER (Discontinued)(12 years or older) 05/07/2022(Deferred: Patient decision) Td (Adult), adsorbed 05/06/2003 Td, (Adult) Unspecified 06/05/2004 Tdap 04/24/2013 influenza high dose (65 year s or older) (PF) 10/30/2019 Family History Medical History Relation Name Comments Coronary artery disease Brother 1 Guillermo Heart disease Brother 1 Guillermo Cancer Brother 2 Chris Esophageal No Known Problems Daughter Carrie Lewy body dementia Father Breast cancer Maternal Grandmother Glaucoma Maternal Grandmother Glaucoma Mother Heart attack Mother Heart disease Mother Heart failure Mother Hypertension Mother Stroke Mother No Known Problems Sister 1 Carmen Diverticulitis Sister 2 Radha No Known Problems Sister 3 Korin Diverticulitis Son Bolivar Relation Name Status Comments Brother 1 Guillermo Brother 2 Chris Daughter Carrie Alive Father Maternal Grandmother Mother Sister 1 Carmen Alive Sister 2 Radha Alive Sister 3 Korin Alive Son Bolivar Alive Social History Tobacco Use Types Packs/Day [...] often do you attend chur ch or holiness services? More than 4 times per year 05/07/2022 Do you belong to any clubs o r organizations such as moravian groups, unions, fraternal or athletic groups, or [...] Answer Date Recorded PHQ-2 Score 1 05/07/2022 [facility] - Occupational Stress [...] money to buy more. Never true 05/07/20 Within the past 12 months, t he [...] place to sleep or slept in a [place] facility (including now)? No 05/07/2022 Depression Answer Date [...] Sex Assigned at Female 09/29/2017 8:12 AM DIRECTOR OF PLANT OPERATIONS Gender Identity Female 09/29/2017 8:12 AM DIRECTOR OF PLANT OPERATIONS Sexual Orientation Straight 09/29/2017 8: 12 AM DIRECTOR OF PLANT OPERATIONS Last Filed Vital Signs Vital Sign Reading [...] 05/07/2022 12:25 PM CDT Plan of Treatment Health Maintenance Due Date Last Done Comments CT Colonography 1950 Cologuard 1950 FIT 1950 Hepatitis C Screening 1950 Zoster Vaccines (1 of 2) 2002 Mammogram 04/16/2022 04/16/2021, 07/0 12/2019, 05/14/2020, Additional history exists Depression Monitoring (PHQ-9) 09/06/2022 05/07/2022 DTaP,Tdap,and Td Vaccines (2 - Td or Tdap) 04/24/2023 04/24/2013, 06/05/2004, 05/06/2003 COVID-19 Vaccine (4 - 2022-2 4 season) 2023 10/30/2021, 02/04/2021, 01/14/2021 Influenza Vaccine (#1) 2023 , 10/30/2019, 12/09/2016 Fall Risk Screen (Annual) 11/22/2023 Fasting Glucose for Diabetes Screening 05/12/2026 05/12/2023, 05/13/2022, 11/13/2021, Additional history exists Colonoscopy 10/28/2031 10/28/2021, 01/16/2016 Colorectal Cancer Screening 10/28/2031 Pneumococcal vaccine (65+ years) Completed 05/12/20, 06/18/2020 Medical Devices Implanted Type Area [employer] Mechanic Device Identifier Shelf Expiration Date Model / Serial / Lot Silicone Implanted: (Quantity not on file) Breast Implant Bilateral: Breast Care Teams Reciprocating Drill Operator Relationship Specialty Start Date End Date Elsewhere, Pcp PCP - General Internal Medicine 05/28/22
[2024-02-27 05:19] LABS: Chloride* 104 mmol/L (96-114); Potassium* 3.6 mmol/L (3.6-5.1); Sodium* 135 mmol/L (135-149)
[2024-02-27 05:22] LABS: Anion Gap 4 mEq/L (7-15); Carbon Dioxide* 27 mmol/L (20-32); Creatinine* 0.5 mg/dL (0.5-1.5); Est. Creatinine Clearance* 40.81; Estimated Glomerular Filt Rate 100 ml/min
[2024-02-27 05:23] LABS: Blood Urea Nitrogen* 11 mg/dL (7-30); Calcium* 8.8 mg/dL (8.4-10.6); Glucose* 109 mg/dL (60-115)
[2024-02-27 05:31] VITALS: BP 119/79; PULSE 73; RESP 20; O2SAT 97
[2024-02-27] MEDS: 0.9 % SODIUM CHLORIDE 500 ML 500 ML 1000 ML IV (05:43)
[2024-02-27] MEDS: HYDROmorphone 0.5 mg/0.5 ml inj IVP (05:43)
[2024-02-27 06:01] VITALS: BP 117/66; PULSE 70; RESP 20; O2SAT 95
[2024-02-27 06:31] VITALS: BP 117/67; PULSE 73; RESP 20; O2SAT 95
== END 2024-02-27 07:22 | disposition home or self-care (01) ==
PROVIDERS: Emergency Provider Internal Medicine; PCP Family Medicine
DX: R11.10 Vomiting, unspecified (principal)
CPT/HCPCS: 36415; 80048; 85025; 94761; 96374; 96375; 99283; 99284; J1170; J2405; J7030

== ENCOUNTER 2024-03-13 15:23 | Emergency (ER) | payer MEDICARE, BC, SELFPAY ==
[2024-03-13] VITALS (16 sets, daily range): BP systolic 43–136; BP diastolic 30–82; PULSE 60–81; RESP 18; TEMP 36.9; O2SAT 96–100; BMI 19.7
--- NOTE | 2024-03-13 16:12 | ED_ITS ---
HPI - Chest Pain General Time Seen by Provider: 16:12 Date Seen: 03/13/24 Chief Complaint: Chest Pain Stated Complaint: Chest pain, short of breath Time Seen by Provider: 03/13/24 16:12 Source: patient and RN notes reviewed Mode of arrival: ambulatory Limitations: no limitations History of Present Illness HPI narrative: This 73-year-old female is ambulatory in the ER after being brought over from Radiology for presyncope. Patient states she was waiting in Radiology to get a left lower extremity ultrasound for ongoing left leg pain after a left hip replacement. She states she just took off her compression stockings, the leg has been swelling. She is feeling pain throughout the whole leg, the ultrasound was ordered to rule out a blood clot. While she was sitting waiting to have this done, she felt chest heaviness and pressure, felt like she was going to pass out. She did not actually lose consciousness. Still feels a sense of chest pressure. [place] short of breath with it. No fevers or chills. She has no prior cardiac or lung history, no history of blood clots. She states her mom had bunch of heart disease, unsure she had blood clots at all. Her left hip was replaced here on 02/24/2024. She denies any history of lumbar radiculopathy. She states the hip just hurts all the time, she has had difficulty sleeping some night, it is not just with walking or position changes, she states it hurts to sit it just hurts all the time. She will feel pain throughout the whole leg. MD complaint: chest pain, chest heaviness and chest discomfort Related Data Home Medications Medication Instructions Recorded Confirmed acetaminophen 500 mg tablet 1,000 mg PO Q6H PRN 01/31/24 03/01/24 (Tylenol Extra Strength) celecoxib 100 mg capsule 100 mg PO BID 01/31/24 03/01/24 omeprazole 20 mg capsule,delayed 20 mg PO DAILY 01/31/24 03/01/24 release sertraline 50 mg tablet 50 mg PO DAILY 01/31/24 03/01/24 Previous Rx's Medication Instructions Recorded aspirin 81 mg chewable tablet 81 mg PO BID for DVT prophylaxis 02/24/24 (Aspirin Childrens) 30 days #60 tabs sennosides 8.6 mg tablet (Senna 17.2 mg (2 x 8.6 mg) PO BID PRN 02/24/24 Lax) constipation #100 tabs oxycodone 5 mg tablet 2.5 - 5 mg (0.5 - 1 x 5 mg) PO 03/10/24 Q6-8H PRN Pain #20 tabs Allergies Allergy/AdvReac Type Severity Reaction Status Date / Time bee pollen Allergy Unknown Verified 03/01/24 09:50 Review of Systems Status of ROS Reports: 6 or more systems reviewed and unremarkable except as noted in History and below PFSH PFS Medical History GERD (gastroesophageal reflux disease) ?K21.9 - Gastro-esophageal reflux disease without esophagitis (ICD-10) Diverticulitis ?K57.92 - Diverticulitis of intestine, part unspecified, without perforation or abscess without bleeding (ICD-10) Allergic rhinitis ?J30.9 - Allergic rhinitis, unspecified (ICD-10) DDD (degenerative disc disease), lumbosacral ?M51.37 - Other intervertebral disc degeneration, lumbosacral region (ICD-10) Lumbosacral radiculopathy at L1 ?M54.17 - Radiculopathy, lumbosacral region (ICD-10) Surgical History History of total left hip replacement (02/24/24) ?Z96.642 - Presence of left artificial hip joint (ICD-10) History of arthroscopy of right shoulder ?Z98.890 - Other specified postprocedural states (ICD-10) History of surgery on upper extremity (11/2004) ?Z98.890 - Other specified postprocedural states (ICD-10) History of cervical discectomy (06/1994) ?Z98.890 - Other specified postprocedural states (ICD-10) H/O arthroscopy of left knee (11/2004) ?Z98.890 - Other specified postprocedural states (ICD-10) H/O dilation and curettage (05/06/86) ?Z98.890 - Other specified postprocedural states (ICD-10) H/O dilation and curettage (05/06/78) ?Z98.890 - Other specified postprocedural states (ICD-10) History of breast augmentation ?Z98.82 - Breast implant status (ICD-10) History of cholecystectomy ?Z90.49 - Acquired absence of other specified parts of digestive tract (ICD- 10) History of appendectomy (03/1983) ?Z90.49 - Acquired absence of other specified parts of digestive tract (ICD- 10) Family History Mother High blood pressure Heart disease High cholesterol Thyroid disease Stroke Father Dementia Depression Brother Myocardial infarction Esophageal cancer Social History Narrative: -Johnny Smoking Status: Never smoker Do you use any of these nicotine containing products: None Second hand tobacco smoke exposure: No How often do you have a drink containing alcohol: never AUDIT-C Alcohol total score: 0 Non-prescribed substance use: marijuana (any form) Caffeine: No Are you now , , , , never or living with a partner: Social isolation score (0-1 are the most socially isolated patients): 1 service: No Exam Const Vital Signs, click to edit/add: Vital Signs - 24 hr 03/13/24 15:29 03/13/24 16:17 03/13/24 16:18 Temperature 98.4 F Pulse Rate 63 63 Pulse Rate [Right Pulse Oximeter] 67 Respiratory Rate 18 Blood Pressure 128/76 Blood Pressure [Right Upper Arm] 114/75 Pulse Oximetry 97 97 98 Oxygen Delivery Method Room Air 03/13/24 16:23 03/13/24 16:30 03/13/24 16:32 Temperature Pulse Rate 66 60 Pulse Rate [Right Pulse Oximeter] Respiratory Rate Blood Pressure 132/78 Blood Pressure [Right Upper Arm] Pulse Oximetry 97 97 98 Oxygen Delivery Method 03/13/24 17:00 03/13/24 17:02 03/13/24 17:35 Temperature Pulse Rate 67 63 81 Pulse Rate [Right Pulse Oximeter] Respiratory Rate Blood Pressure 136/82 43/30 L Blood Pressure [Right Upper Arm] Pulse Oximetry 97 99 100 Oxygen Delivery Method 03/13/24 17:37 03/13/24 17:43 03/13/24 18:00 Temperature Pulse Rate 76 73 76 Pulse Rate [Right Pulse Oximeter] Respiratory Rate Blood Pressure 124/71 Blood Pressure [Right Upper Arm] Pulse Oximetry 99 96 98 Oxygen Delivery Method 03/13/24 18:02 03/13/24 18:30 03/13/24 18:32 Temperature Pulse Rate 72 65 70 Pulse Rate [Right Pulse Oximeter] Respiratory Rate Blood Pressure 134/73 127/81 Blood Pressure [Right Upper Arm] Pulse Oximetry 97 98 98 Oxygen Delivery Method This 73-year-old female is alert, interactive, no apparent distress. Able speak in complete sentences. Pupils equal round reactive, sclera clear, conjugate gaze. Symmetrical facial function. Neck is supple, no adenopathy come to giving since distension. Lungs are clear, good air entry, no wheeze or crackles. CV regular rate and rhythm, no murmur, normal S1 and S2. Abdomen is soft, nontender, nondistended, no organomegaly. Her scar over her left anterior hip looks to be clean dry intact, no erythema. She has no pitting edema at this time of her left lower extremity, she has no edema of her lower extremities, both seems symmetric. Documenting provider has reviewed patient's vital signs: yes Course Course ED Course: This patient obviously needs to complete her left lower extremity venous ultrasound, will order through the ER. We will proceed with chest imaging to rule out PE. Will look at cardiac arrhythmias, keep her on cardiac monitoring and pulse oximetry. Will look at acute coronary syndrome, not having an acute STEMI based on her current EKG but will look at her troponin. Will look at electrolytes just to ensure no significant changes, no underlying muscle spasms coming from electrolytes insufficiencies. She is currently hemodynamically stable. Reevaluation(s) Time of Reevaluation #1: 17:00 Reevaluation #1: Patient is requesting pain medicines, states she has not had anything since 11:00 a.m.. Will give her 5 mg oral oxycodone. Did review her med rec. Do see that she has chronic pain listed in her chart. Time of Reevaluation #2: 18:15 Reevaluation #2: Have reviewed with patient that her ultrasound and chest CT are negative for any blood clots. So far her labs are reassuring, no evidence of initial cardiac change on her troponin, no evidence of infection based on labs. We need a follow-up EKG and troponin, if these are normal she can discharge to home for further management with Orthopedics as to her pain in her leg postsurgically. Time of Reevaluation #3: 18:54 Reevaluation #3: Reviewed with patient that the follow-up EKG and troponin show no acute change. Plan will be to discharge to home for further ongoing outpatient follow-up. Vital Signs Vital signs: Initial Vital Signs Temperature 98.4 F 03/13/24 15:29 Temperature Source Temporal Artery Scan 03/13/24 15:29 Pulse Rate 67 03/13/24 15:29 Respiratory Rate 18 03/13/24 15:29 Blood Pressure 114/75 03/13/24 15:29 Blood Pressure Mean 88 03/13/24 15:29 Blood Pressure Position Sitting 03/13/24 15:29 Pulse Oximetry 97 03/13/24 15:29 Oxygen Delivery Method Room Air 03/13/24 15:29 Vital Signs Temperature 98.4 F 03/13/24 15:29 Pulse Rate 67 03/13/24 15:29 Respiratory Rate 18 03/13/24 15:29 Blood Pressure 114/75 03/13/24 15:29 Pulse Oximetry 97 03/13/24 15:29 Oxygen Delivery Method Room Air 03/13/24 15:29 Temperature 98.4 F 03/13/24 15:29 Pulse Rate 70 03/13/24 18:32 Respiratory Rate 18 03/13/24 15:29 Blood Pressure 127/81 03/13/24 18:32 Pulse Oximetry 98 03/13/24 18:32 Oxygen Delivery Method Room Air 03/13/24 15:29 Medications Administered Medications: Discontinued Medications Generic Name Dose Route Start Last Admin Trade Name Tajq PRN Reason Stop Dose Admin Oxycodone HCl 5 mg 03/13/24 17:01 03/13/24 17:13 Oxycodone 5 Mg Tablet PO 03/13/24 17:02 5 mg ONCE ONE Administration MDM - Chest Pain Lab Data Attestation: I reviewed the patient's lab results. Labs: Lab Results 03/13/24 03/13/24 Range/Units 16:43 18:27 WBC 7.33 (4.50-11.00) K/uL RBC 3.33 L (4.00-5.20) m/uL Hgb 10.7 L (12.0-16.0) gm/dL Hct 33.1 (33.0-51.0) % MCV 99 (80-100) fL MCH 32 (26-34) pg MCHC 32 (32-36) gm/dL RDW Coeff of Georgina 14.7 (11.5-15.5) % Plt Count 481 H (140-440) K/uL Neut % (Auto) 64.5 (42.0-72.0) % Lymph % (Auto) 24.8 (20-44) % Lee % (Auto) 6.3 (0.0-11.0) % Eos % (Auto) 4.0 (0.0-7.0) % Baso % (Auto) 0.3 (0.0-3.0) % Neut # (Auto) 4.73 (1.7-7.0) K/uL Lymph # (Auto) 1.82 (0.90-2.90) K/uL Lee # (Auto) 0.50 (0.00-0.90) K/UL Eos # (Auto) 0.29 (0.00-0.50) K/uL Baso # (Auto) 0.02 (0.00-0.30) K/uL Abs Immat Gran (auto) 0.01 (0.00-0.30) K/uL Imm/Tot Granulo (auto) 0.1 % ESR 44 H (2-20) mm/hr INR 0.93 (0.91-1.10) APTT 27 (23-33) Seconds D-Dimer Quant (PE/DVT) 5.02 H (0.00-0.50) ug/ml VBG pH 7.403 (7.32-7.43) VBG pCO2 44 (40-50) mmHG VBG pO2 < 30.1 (25-47) mmHG VBG HCO3 27 (21-28) mmol/L Sodium 137 (135-149) mmol/L Potassium 4.0 (3.6-5.1) mmol/L Chloride 109 (96-114) mmol/L Carbon Dioxide 27 (20-32) mmol/L Anion Gap 1 L (7-15) mEq/L BUN 22 (7-30) mg/dL Creatinine 0.6 (0.5-1.5) mg/dL Estimated Creat Clear 42.49 Estimated GFR 96 ml/min Glucose 91 (60-115) mg/dL Lactate 0.9 (0.5-1.9) mmol/L Calcium 9.3 (8.4-10.6) mg/dL Magnesium 2.3 (1.5-2.6) mg/dL Total Bilirubin 0.2 (0.1-1.5) mg/dL AST 38 H (12-35) U/L ALT 38 H (4-35) U/L Alkaline Phosphatase 93 (40-150) U/L Total Creatine Kinase 44 (41-117) U/L Troponin I < 0.01 L (0.01-0.04) ng/mL C-Reactive Protein < 0.5 L (0.5-1.0) mg/dL NT-Pro-B Natriuret Pep 437 pg/mL Total Protein 7.1 (6.0-8.3) g/dL Albumin 4.1 (3.3-5.0) g/dL Procalcitonin 0.06 (<0.50) ng/mL POC Troponin I 0.01 (0.01-0.04) ng/ml Imaging Data CT scan - chest: Attestation: I have reviewed the pertinent imaging results. Radiologist's impression: Patient: JOVITA LEVINE Facility:?[facility] Patient ID:?[id number] Site Patient ID:?[id number] Site :?1950 Study:?CT-Chest PE-03/13/2024 5:41:24 PM Ordering Physician:SMOOTH MENDOZA Final Report: INDICATION: Presyncope, chest pressure, recent hip surgery. COMPARISON: None. TECHNIQUE: CT of the chest acquired with 95 cc Isovue 370 IV contrast according to the PE protocol. Coronal and sagittal reconstructions. 2D and 3D MIP images for post processing were performed and interpreted on an independent workstation, and 3D images were permanently archived. FINDINGS: Normal heart size. Normal caliber thoracic aorta and central pulmonary arteries. No acute pulmonary embolism identified. No pericardial effusion. No thoracic lymphadenopathy. Bilateral breast implants. The thyroid gland is normal in appearance. No focal consolidation, pleural effusion, or pneumothorax. Bibasilar dependent atelectasis. No suspicious pulmonary nodules. No central endobronchial lesion or significant bronchial wall thickening. The visualized upper abdomen is unremarkable except for post cholecystectomy changes. Degenerative changes of the spine. IMPRESSION: 1. Negative for acute pulmonary embolism. 2. No other acute findings in the chest. Please note that all CT scans at this facility use dose modulation, iterative reconstruction, and/or weight-based dosing when appropriate to reduce radiation dose to as low as reasonably achievable. Dictated by Carol Banda MD @ 03/13/2024 6:13:07 PM (Electronic Signature) Venous US: Attestation: I have reviewed the pertinent imaging results. Radiologist's impression: Patient: JOVITA LEVINE Facility:?[facility] Patient ID:?[id number] Site Patient ID:?[id number] Site :?1950 Study:?US-Extremity Left LEV LT-03/13/2024 5:13:23 PM Ordering Physician:?RADHA NELSON M.D. Final Report: Indication: Left leg pain Technique: Left lower extremity venous ultrasound per protocol. Comparison: None. Findings: Sonographic evaluation of the left lower extremity venous system utilizing felipe brandi, color flow and duplex Doppler techniques from the left common femoral, including the proximal greater saphenous vein, through the femoral, popliteal and peroneal veins demonstrates no echogenic debris, normal compressibility, normal color flow and normal augmented duplex Doppler waveforms. No popliteal cyst. Impression: No left lower extremity DVT. Dictated by Harry Watkins MD @ 03/13/2024 5:29:32 PM (Electronic Signature) ECG Data Attestation: I personally reviewed and interpreted this ECG as follows: (Normal sinus rhythm, 62 beats per minute. Flipped T-waves without ST segment changes certainly V1 through V3. Flat T-waves aVL. No definitive ischemic change or infarct noted. QT corrected 391 milliseconds.) ECG interpretation date: 03/13/24 ECG interpretation time: 16:29 Prior ECG tracings: not available for review Interpretation: EKG timed 6:35 p.m. showing normal sinus rhythm, nonspecific T-wave issues, no significant change from prior. No infarct seen. QT corrected 444 milliseconds. Critical Care Time Critical Care Time Critical Care Time: No Discharge Plan Discharge Clinical Impression: Status post left hip replacement, Left leg pain Chest pain Qualifiers: Chest pain type: unspecified Qualified Code(s): R07.9 - Chest pain, unspecified Patient Disposition: Home, Self-Care Condition: Stable Instructions: Chest Pain (ED), Noncardiac Chest Pain (ED) Additional Instructions: Contact the orthopedic office tomorrow, the ultrasound was negative for DVT in this leg. Likewise, no cardiac changes or pulmonary embolus found during your time in the ER. Your monitoring showed note concerning changes with your oxygen saturation and no rhythm disturbance of your heart. Please follow-up with your primary care provider and discuss your chest symptoms, can review with them about getting a cardiac stress test done. You would likely need to have a non exercise stress test given your recent hip surgery, a Lexiscan could be ordered for stress test imaging. If you have worsening of your chest symptoms, or becoming short of breath, develops fever or cough with chest symptoms, do recommend seeking re-evaluation. Activity Detail: Follow postoperative instructions from your hip replacement. Prescriptions: No Action celecoxib 100 mg capsule 100 mg PO BID Hold Instructions: Resume on 03/22/24. restart after stopping Xarelto omeprazole 20 mg capsule,delayed release(DR/EC) 20 mg PO DAILY sertraline 50 mg tablet 50 mg PO DAILY acetaminophen [Tylenol Extra Strength] 500 mg tablet 1,000 mg PO Q6H PRN sennosides [Senna Lax] 8.6 mg Tablet 17.2 mg PO BID PRN (Reason: constipation) Qty: 100 0RF aspirin [Aspirin Childrens] 81 mg tablet,chewable 81 mg PO BID 30 Days Qty: 60 0RF oxycodone 5 mg tablet 2.5 - 5 mg PO Q6-8H MDD 6 tabs per day PRN (Reason: Pain) Qty: 20 0RF Rx Instructions: Minimize. Discontinue as soon as possible Follow Up/Referrals: Maria E Nix DO [Primary Care Provider] - Stand Alone Forms: [employer] Info Instructions
--- NOTE | 2024-03-13 16:23 | CT_ITS ---
Patient: JOVITA LEVINE Facility:?[facility] Patient ID:?[id number] Site Patient ID:?[id number] Site :?1950 Study:?CT-Chest PE-03/13/2024 5:41:24 PM Ordering Physician:SMOOTH MENDOZA Final Report: INDICATION: Presyncope, chest pressure, recent hip surgery. COMPARISON: None. TECHNIQUE: CT of the chest acquired with 95 cc Isovue 370 IV contrast according to the PE protocol. Coronal and sagittal reconstructions. 2D and 3D MIP images for post processing were performed and interpreted on an independent workstation, and 3D images were permanently archived. FINDINGS: Normal heart size. Normal caliber thoracic aorta and central pulmonary arteries. No acute pulmonary embolism identified. No pericardial effusion. No thoracic lymphadenopathy. Bilateral breast implants. The thyroid gland is normal in appearance. No focal consolidation, pleural effusion, or pneumothorax. Bibasilar dependent atelectasis. No suspicious pulmonary nodules. No central endobronchial lesion or significant bronchial wall thickening. The visualized upper abdomen is unremarkable except for post cholecystectomy changes. Degenerative changes of the spine. IMPRESSION: 1. Negative for acute pulmonary embolism. 2. No other acute findings in the chest. Please note that all CT scans at this facility use dose modulation, iterative reconstruction, and/or weight-based dosing when appropriate to reduce radiation dose to as low as reasonably achievable. Dictated by Carol Banda MD @ 03/13/2024 6:13:07 PM Signed by:?Carol Banda MD @03/13/2024 6:13:07 PM (Electronic Signature)
--- NOTE | 2024-03-13 16:24 | US_ITS ---
Patient: JOVITA LEVINE Facility:?[facility] Patient ID:?[id number] Site Patient ID:?[id number]. Site :?1950 Study:?US-Extremity Left LEV LT-03/13/2024 5:13:23 PM Ordering Physician:?ALEKSEY ESPAÑA M.D. Final Report: Indication: Left leg pain Technique: Left lower extremity venous ultrasound per protocol. Comparison: None. Findings: Sonographic evaluation of the left lower extremity venous system utilizing grayscale, color flow and duplex Doppler techniques from the left common femoral, including the proximal greater saphenous vein, through the femoral, popliteal and peroneal veins demonstrates no echogenic debris, normal compressibility, normal color flow and normal augmented duplex Doppler waveforms. No popliteal cyst. Impression: No left lower extremity DVT. Dictated by Harry Watkins MD @ 03/13/2024 5:29:32 PM Signed by:?Harry Watkins MD @03/13/2024 5:29:32 PM (Electronic Signature)
[2024-03-13 16:51] LABS: HCO3 VBG 27 mmol/L (21-28); Lactate* 0.9 mmol/L (0.5-1.9); PCO2 VBG 44 mmHG (40-50); PO2 VBG < 30.1 mmHG (25-47); pH VBG 7.403 (7.32-7.43)
[2024-03-13 16:54] LABS: Basophils Absolute Auto 0.02 K/uL (0.00-0.30); Basophils Percent Auto 0.3 % (0.0-3.0); Eosinophils Absolute Auto 0.29 K/uL (0.00-0.50); Hematocrit 33.1 % (33.0-51.0); Hemoglobin* 10.7 gm/dL (12.0-16.0); Immature Granulocytes Abs Auto 0.01 K/uL (0.00-0.30); Immature Granulocytes Pct Auto 0.1 %; Lymphocytes Absolute Auto 1.82 K/uL (0.90-2.90); Lymphocytes Percent Auto 24.8 % (20-44); Mean Corpuscular HGB Conc 32 gm/dL (32-36); Mean Corpuscular Hemoglobin 32 pg (26-34); Mean Corpuscular Volume 99 fL (80-100); Monocytes Percent Auto 6.3 % (0.0-11.0); Neutrophils Absolute Auto 4.73 K/uL (1.7-7.0); Neutrophils Percent Auto 64.5 % (42.0-72.0); Platelet Count* 481 K/uL (140-440); RDW Coefficient of Variation % 14.7 % (11.5-15.5); Red Blood Count 3.33 m/uL (4.00-5.20); White Blood Count* 7.33 K/uL (4.50-11.00)
[2024-03-13 16:56] LABS: Slide Review Reflex No
--- OUTSIDE RECORDS SUMMARY | 2024-03-13 16:58 | XMS_ITS | Clinical Summary ---
Author Name Unknown Organization [facility] Address [address] [place] [address] Care Team Providers Care Assembler Liquid Center Name Role Phone Elsewhere, Pcp Primary Care Provider Unavailabl e Source Comments Patient records contain information from all sites at [facility]. For routine questions regarding patient records, call [phone] during business hours, M-F 8:00 AM - 5:00 PM Central Time. Record requests for emergency care only can be directed to [phone] at any time.[facility] Allergies Active Allergy Reactions Criticality Noted Date Comments Bee Venom Protein (Honey Bee) Swelling 08/16/2014 Hymenoptera Allergenic Extract Edema (Reselect Reaction) 01/14/2016 Swelling and pain Pollen Extracts Other (see comments) Medium 08/31/2017 Medications Medication Sig Dispensed Refills Start Date End Date Status omega-3 fatty acids 500 mg capsule Take 500 capsules by mouth. Is in Doterra multipack Active sertraline (ZOLOFT) 50 mg tabletIndications:An xiety [...] Overview: Added automatically from request for surgery [id number] 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/2018 04/26/2019 Chronic Pain [...] 05/07/2022 How often do you attend chur or episcopal services? More than 4 times per year 05/07/2022 Do you belong to any clubs o r organizations such as druze groups, unions, fraternal or athletic groups, or [...] Answer Date Recorded PHQ-2 Score 1 05/07/2022 [facility] - Occupational Stress [...] Sex Assigned at Female 09/29/2017 8:12 AM HANDICAPPER HARNESS RACING Gender Identity Female 09/29/2017 8:12 AM HANDICAPPER HARNESS RACING Sexual Orientation Straight 09/29/2017 8: 12 AM HANDICAPPER HARNESS RACING Last Filed Vital Signs Vital Sign Reading [...] (1 of 2) 2002 Mammogram 04/16/2022 04/16/2021, 07/12/2019, 05/14/2020, Additional history exists Depression Monitoring (PHQ-9) [...] 05/12/20, 06/18/2020 Medical Devices Implanted Type Area Chef'S Assistant Device Identifier Shelf Expiration Date Model / Serial / Lot Silicone Implanted: (Quantity not on file) Breast Implant Bilateral: Breast Procedures Procedure Name Priority Date/Time Associated Diagnosis Comments EXTI BASIC METABOLIC PANEL, S/P Routine 05/12/2023 10:58 AM CDT BI BREAST DIAGNOSTIC BILATERAL WITH TOMOSYNTHESIS RAD - Routine (most inpatients and all outpatients) 04/16/2021 8:48 AM CDT Pain Breast from Last 3 Months or Most Recently Relevant to Health Maintenance Results * BI Breast Diagnostic Bilateral with Tomosynthesis (04/16/2021 8:48 AM CDT) Anatomical Region Laterality Modality Breast, Breast Imaging RST L OS, Breast Imaging ARZ LOS, Breast Imaging FLA LOS Bilateral Mammography 04/16/2021 2:37 PM CDT Impressions 04/16/2021 2:40 PM CDT No mammographic or sonographic findings of malignancy. RECOMMENDATION: ??Annual Screening Mammogram I discussed my findings and impression with the patient. Specifically, I discussed the absence of suspicious features by mammography/ultrasound. We briefly discussed the relevance of and natural history of breast pain. I recommend patient return for annual screening mammography. I told the patient to report any new or changing symptoms in either breast to her primary care provider. All questions answered. ASSESSMENT: ??BI-RADS: 2: Benign. Narrative 04/16/2021 2:40 PM CDT EXAM: ??BI BREAST DIAGNOSTIC BILATERAL WITH TOMOSYNTHESIS, BI ULTRASOUND BREAST FOCUSED BILATERAL INDICATION: ??Several month history of bilateral breast pain, greater on the right predominantly periareolar. Cyst aspiration right breast 05/31/2020. COMPARISON: ??Studies dating back to 2014 DENSITY: ??d. The breast(s) are extremely dense, which lowers the sensitivity of mammography. FINDINGS: ?? MAMMOGRAPHY: RIGHT: No suspicious findings. Breast implant. LEFT: No suspicious findings. Breast implant. ULTRASOUND: RIGHT: Periareolar pain evaluated with targeted periareolar ultrasound. No suspicious finding. Incidental imaging of implant, which appears intact. LEFT: Periareolar pain evaluated with targeted periareolar ultrasound. No suspicious finding. Incidental imaging of implants, which appears intact. I confirmed these findings myself with live ultrasound. Procedure Note Regis Fernandez M.D. - 04/16/2021 EXAM: BI BREAST DIAGNOSTIC BILATERAL WITH TOMOSYNTHESIS, BI ULTRASOUNDBREAST FOCUSED BILATERAL INDICATION: Several month history of bilateral breast pain, greater onthe right predominantly periareolar. Cyst aspiration right breast 05/31/2020. COMPARISON: Studies dating back to 2014 DENSITY: d. The breast(s) are extremely dense, which lowers thesensitivity of mammography. FINDINGS: MAMMOGRAPHY: RIGHT: No suspicious findings. Breast implant. LEFT: No suspicious findings. Breast implant. ULTRASOUND: RIGHT: Periareolar pain evaluated with targeted periareolar ultrasound.No suspicious finding. Incidental imaging of implant, which appears intact. LEFT: Periareolar pain evaluated with targeted periareolar ultrasound.No suspicious finding. Incidental imaging of implants, which appearsintact. I confirmed these findings myself with live ultrasound. IMPRESSION: No mammographic or sonographic findings of malignancy. RECOMMENDATION: Annual Screening Mammogram I discussed my findings and impression with the patient. Specifically, I discussed the absence of suspicious features by mammography/ultrasound.We briefly discussed the relevance of and natural history of breast pain. I recommend patient return for annual screening mammography. I told thepatient to report any new or changing symptoms in either breast to her primary care provider. All questions answered. ASSESSMENT: BI-RADS: 2: Benign. Idalia Ibarra APRNN.Yahir., R.N. IMG BI PROCEDURES from Last 3 Months or Most Recently Relevant to Health Maintenance Care Teams Assembler Liquid Center Relationship Specialty Start Date End Date Elsewhere, Pcp PCP - General Internal Medicine 05/28/22
--- OUTSIDE RECORDS SUMMARY | 2024-03-13 16:58 | XMS_ITS | Clinical Summary ---
Author Name Unknown Organization [facility] Address [place], [place] [address] Care Team Providers Care Cook Enchilada Name Role Phone Dinah Maria E Quin FABIAN Primary Care Provider Allergies Active Allergy Reactions Criticality Noted Date Comments Hymenoptera Allergenic Extract Edema 01/14/2016 Swelling and pain Unlisted Allergen (Include Detail In Comments) Other - Describe In Comment Field 01/16/2016 Seasonal pollens, nasal stuffiness Medications Medication Sig Dispensed Refills Start Date End Date Status omeprazole 20 mg tabletIndications :Chronic GERD,Oropharyngea l dysphagia Take 1 Tablet (20 mg) by mouth once daily before a meal. 90 Tablet 3 05/07/2023 Active medication order composer Medical Marijuana 0 08/04/2023 Active sertraline (ZOLOFT) 50 mg tabletIndications :Depression, recurrent (HC) TAKE 1 TABLET BY MOUTH EVERY DAY 90 Tablet 3 08/18/2023 Active celecoxib (CELEBREX) 100 mg capsuleIndication s:Bilateral hip joint arthritis,Disc degeneration, lumbar Take 1 Capsule (100 mg) by mouth two times daily with meals. 60 Capsule 2 01/21/2024 Active acetaminophen (TYLENOL EXTRA STRGTH) 500 mg tablet Take by mouth. 01/31/2024 Active aspirin chewable 81 mg chewable tablet TAKE 1 TABLET BY MOUTH TWICE A DAY FOR FOR DVT PROPHYLAXIS FOR 30 DAYS 02/24/2024 Active Senna 8.6 mg tablet TAKE 2 TABLETS BY MOUTH TWICE A DAY NEEDED FOR CONSTIPATION 02/24/2024 Active WalkerIndications :S/P total left hip arthroplasty Walker with front wheels for home use. Length of need 99 03/06/2024 Active oxyCODONE (ROXICODONE) 5 mg immediate release tablet PLEASE SEE ATTACHED FOR DETAILED DIRECTIONS 02/24/2024 4 Discontinue d(*Med complete/Re gimen complete/Le yojana of care change) omeprazole (PRILOSEC) 20 mg Delayed-Release capsule Take 20 mg by mouth once daily before a meal. 02/22/2024 4 Discontinue d(Duplicate therapy (E-cancel not sent)) WalkerIndications :S/P total left hip arthroplasty Walker with front wheels for home use. Length of need. 03/08/2024 4 Discontinue d(Duplicate therapy (E-cancel not sent)) Active Problems Problem Noted Date Diagnosed Date Depression, recurrent 01/21/2024 Last Assessment & Plan: chart update only Encounters Date Type Department Care Team Description 03/06/2024 1:50 PM CDT Office Visit [facility] [address] [place] [address] Maria E Nix DO Post-op (hip/) 03/06/2024 Travel 03/03/2024 2:30 PM CDT Procedure Only [facility] [address] [place] [address] Lucia Ricks L Ac Acupuncture 03/02/2024 8:20 AM CDT Office Visit [facility] [address] [place] [address] Vargas Cintron MD Musculoskeletal Problem (Follow up hip and back pain, post-op left hip on 02/24/[address] [place]) 03/02/2024 Travel 02/24/2024 Orders Only [facility] Scanner 1 scan: (1-Ord) [facility], XR HIP LT, 02/24/2024 02/24/2024 Orders Only [facility] Scanner 1 scan: (1-Ord) [facility], RT HIP INJ, 02/24/2024 02/24/2024 Orders Only [facility] Scanner 1 scan: (1-Ord) [facility], XR LT HIP 1 VIEW, 02/24/2024 02/08/2024 Orders Only [facility] [address] [place] [address] Maria E Nix, 1 scan: (1-Ord) NFLD-EKG-3.15.24 02/04/2024 10:15 AM CDT Preop Visit [facility] [address] [place] [address] Maria E Nix, Preoperative Exam (left hip surgery 02/24/24/[facility] Dr. [place]) 02/04/2024 Travel 01/21/2024 9:50 AM STUDIO GRIP Office Visit [facility] [address] [place] [address] Maria E Nix DO Back Pain/problem (OMT/) 01/21/2024 Travel 12/17/2023 10:30 AM STUDIO GRIP Procedure Only [facility] [address] [place] [address] Lucia Ricks L Ac Acupuncture 12/17/2023 Travel from Last 3 Months Immunizations Name Administration Dates Next Due COVID-19 vaccine ([employer] 30mcg/0.3mL) PF, MDV 10/30/2021 Influenza, High-dose Inactivated [...] Sign Reading Time Taken Comments Blood Pressure 105/66 03/06/2024 2:05 PM CDT Pulse 81 03/06/2024 2:05 PM CDT Temperature 36.8 ??C (98.2 ??F) 03/02/2024 8:30 AM CD T Respiratory Rate 20 11/13/2021 10:28 AM STUDIO GRIP Oxygen Saturation 99% 03/06/2024 2:05 PM CDT Inhaled Oxygen Concentration - - Weight 52.4 kg (115 lb 9.6 oz) 03/06/2024 2:05 P M CDT Height 159.4 cm (5' 2.76) 02/04/2024 10:24 AM C DT Body Mass Index 20.64 02/04/2024 10:24 AM CDT Plan of Treatment Upcoming Encounters Date Type Department Care Team (Late st Contact Info) Description 03/20/2024 8:30 AM CDT Procedure Only [facility] [address] [place] [address] Lucia Ricks L Ac [address] [place] [address] 03/27/2024 10:30 AM CDT Procedure Only [facility] [address] [place] [address] Lucia Ricks L Ac [address] [place] [address] 04/27/2024 11:00 AM CDT Office Visit [facility] [address] [place] [address] Vargas Cintron MD [address] [facility] [place] [address] Health Maintenance Due Date Last Done Comments [...] 05/12/2023 Pneumococcal series for age 65+ Completed , 06/18/2020 DEXA/DXA scan for age 65+ Completed 05/13/2023 Procedures Procedure Name Priority Date/Time Associated Diagnosis Comments ACUPUNCTURE PLAN OF CARE Routine 03/06/2024 12:23 PM CDT Other low back pain ACUPUNCTURE PLAN OF CARE Routine 03/06/2024 12:23 PM CDT Other low back pain ACUPUNCTURE PLAN OF CARE Routine 03/06/2024 12:23 PM CDT Other low back pain SCAN-RADIOLOGY REPORT 02/24/2024 12:00 AM CDT SCAN-RADIOLOGY REPORT 02/24/2024 12:00 AM CDT SCAN-OPERATIVE/PROCE DURE REPORT 02/24/2024 12:00 AM CDT WI READING EKG - NO CHARGE, COMP ONLY Routine 02/08/2024 10:07 AM CDT Pre-op exam EKG 12 LEAD Routine 02/08/2024 10:07 AM CDT Pre-op exam URINALYSIS MICROSCOPIC Routine 02/04/2024 11:13 AM CDT Pre-op exam UA W/ SEDIMENT EXAM REFLEXED PER CRITERIA Routine 02/04/2024 11:13 AM CDT Pre-op exam HEMOGLOBIN Routine 02/04/2024 11:11 AM CDT Pre-op exam ACUPUNCTURE PLAN OF CARE Routine 12/17/2023 1:50 PM STUDIO GRIP Other low back pain XR MAMMO BILAT [...] CDT Lipid screening COLONOSCOPY 10/28/2021 10:10 AM STUDIO GRIP from Last 3 Months or Most Recently Relevant to Health Maintenance Results * SCAN-RADIOLOGY REPORT (02/24/2024 12:00 AM CDT) Only the most recent of2 resultswithin the time period is included. Anatomical Region Laterality Modality Other Scanner OTHER * SCAN-OPERATIVE/PROCEDURE REPORT (02/24/2024 12:00 AM CDT) Scanner OTHER * EKG 12 LEAD (02/08/2024 10:07 AM CDT) Maria E Nix DO EKG ORD * WI READING EKG - NO CHARGE, COMP ONLY (02/08/2024 10:07 AM CDT) Maria E Nix DO PB - PROVIDER READI NGS * URINALYSIS MICROSCOPIC (02/04/2024 11:13 AM CDT) RBC 0-2 0-2, None Seen /HPF 02/04/2024 11:20 AM CDT [facility] WBC 0-2 0-2, 3-5, None Seen /HPF 02/04/2024 11:20 AM CDT [facility] BACTERIA Few None Seen, Rare, Few Bacteria/H PF 02/04/2024 11:20 AM CDT [facility] EPITHELIAL CELLS Few None Seen, Few Epi/HPF 02/04/2024 11:20 AM CDT [facility] Urine URINE SPECIMEN / Unknown Non-Blood / Unknown 02/04/2024 11:13 AM CDT 02/04/2024 11:13 AM CDT Maria E Nix DO URINE [facility] [address] [place] [address], [place] [phone] * (ABNORMAL) UA W/ SEDIMENT EXAM REFLEXED PER CRITERIA (02/04/2024 11:13 AM CDT) COLOR Yellow Yellow Color 02/04/2024 11:20 AM CDT [facility] CLARITY Clear Clear Clarity 02/04/2024 11:20 AM CDT [facility] SPECIFIC GRAVITY,URINE 1.020 1.010, 1.015, 1.020, 1.025 02/04/2024 11:20 AM CDT [facility] PH,URINE 6.5 6.0, 7.0, 8.0, 5.5, 6.5, 7.5, 8.5 02/04/2024 11:20 AM CDT [facility] UROBILINOGEN, QUALITATIVE Normal Normal EU/dl 02/04/2024 11:20 AM CDT [facility] PROTEIN, URINE Negative Negative mg/dL 02/04/2024 11:20 AM CDT [facility] GLUCOSE, URINE Negative Negative mg/dL 02/04/2024 11:20 AM CDT [facility] KETONES,URINE Negative Negative mg/dL 02/04/2024 11:20 AM CDT [facility] BILIRUBIN,URI NE Negative Negative 02/04/2024 11:20 AM CDT [facility] OCCULT BLOOD,URINE Trace(A) Negative 02/04/2024 11:20 AM CDT [facility] NITRITE Negative Negative 02/04/2024 11:20 AM CDT [facility] LEUKOCYTE ESTERASE Trace(A) Negative 02/04/2024 11:20 AM CDT [facility] Urine URINE SPECIMEN / Unknown Non-Blood / Unknown 02/04/2024 11:13 AM CDT 02/04/2024 11:13 AM CDT Maria E Nix DO URINE [facility] [address] [place] [address], * HEMOGLOBIN (02/04/2024 11:11 AM CDT) HEMOGLOBIN 13.2 12.0 - 16.0 g/dL 02/04/2024 11:20 AM CDT [facility] MCV 95 80 - 100 fL 02/04/2024 11:20 AM CDT [facility] Blood BLOOD SPECIMEN / Unknown Venipuncture / Unknown 02/04/2024 11:11 AM CDT 02/04/2024 11:12 AM CDT Maria E Nix DO HEMATOLOGY [facility] [address] [place] [address], * XR MAMMO BILAT SCREEN IMPLANT (05/18/2023 [...] For Patients: As a result of the Century Cures Act, medical imaging exams and procedure reports are released immediately into your electronic medical record. You may view this report before your referring provider. If you have questions, please contact your health care provider. XR MAMMO BILAT SCREEN IMPLANT [[id number]] CLINICAL HISTORY: ??This is an asymptomatic 72 y.o. patient. INDICATION FOR EXAM: Mammogram Screening. TECHNIQUE: CC & MLO views were obtained. Implant displacement views were obtained. This study was evaluated with the assistance of Computer-Aided Detection. COMPARISON FILMS: Yes 04/16/21 [facility] 05/23/20 [facility] FINDINGS: ??The breasts are heterogeneously dense, which may obscure small masses. ??No suspicious masses or microcalcifications. ??There are breast implant(s) present.. Maria E Nix DO MAMMO * XR DXA BONE DENSITY 2 SITES AXIAL [[id number]] (05/13/2023 2:08 PM CDT) Anatomical Region Laterality [...] recommended in 3-5 years. Meka Benson PA-C [facility] 05/27/2023 Narrative 05/27/2023 12:47 PM CDT For Patients: Results are automatically released to your [employer] ([email or web address]) account once available, in compliance with federal regulations. This means that you may see your results before your provider has had a chance to review them. Please allow 2-3 business days for your provider to comment on the results. XR DXA Bone Mineral Density (BMD) EXAM LOCATION: [address] [address] PATIENT NAME: Alona RODRIGUEZ DATE OF : [...] two scanners are made by the same bar turner. PROCEDURE: Dual-energy x-ray absorptiometry performed with routine [...] at or below -2.5 SD Maria E Quin Detert DO DEXA * LC HCV ANTIBODY RFX TO QUANT PCR (05/12/2023 10:58 AM CDT) HCV Ab Non Reactive Non Reactive 05/14/2023 10:10 AM CDT [facility] Blood BLOOD SPECIMEN / Unknown Venipuncture / Unknown 05/12/2023 10:58 AM CDT 05/12/2023 10:59 AM CDT Narrative [facility] - 05/14/2023 10:10 AM CDT Performed at: ??[address] ??[id number] Sprinkler Irrigation Equipment Mechanic: Bry Fairbanks MD, Phone: ??[phone] Maria E Nix DO LABORATORY [facility]) [facility] [place] [address], * (ABNORMAL) LIPID PANEL W REFLEX MEASURED LDL (05/12/2023 10:58 AM CDT) CHOLESTEROL,TOTAL 256(H) 100 - 199 mg/dL 05/12/2023 6:23 PM CDT [facility] Comment: Cholesterol, Total Reference Ranges Desirable <200 mg/dL Borderline 200-239 mg/dL High >=240 mg/dL TRIGLYCERIDES 83 <150 mg/dL 05/12/2023 6:23 PM CDT [facility] HDL CHOLESTEROL 58 >40 mg/dL 6:23 PM CDT [facility] NON-HDL CHOLESTEROL 198(H) <145 mg/dl 05/12/2023 6:23 PM CDT [facility] CHOL/HDL RATIO 4.41 <4.50 05/12/2023 6:23 PM CDT [facility] LDL CHOLESTEROL 181(H) <=130 mg/dL 05/12/2023 6:23 PM CDT [facility] VLDL CHOLESTEROL 17 <=30 mg/dL 05/12/2023 6:23 PM CDT [facility] PROVIDER ORDERED STATUS RANDOM 05/12/2023 6:23 PM CDT [facility] Blood BLOOD SPECIMEN / Unknown Venipuncture / Unknown 05/12/2023 10:58 AM CDT 05/12/2023 10:59 AM CDT Maria E Nix DO CHEMISTRY [facility] [address] [place] [address], [place] * COLONOSCOPY (10/28/2021 10:10 AM STUDIO GRIP) 10/28/2021 10:1 0 AM STUDIO GRIP Narrative Transcriptions FromGadiel dolan MD - 10/28/2021 11:01 AM CST Patient Name: Alona Rodriguez Procedure Date: 10/28/2021 Gender: Female Date of : 1950 Admit Type: Ambulatory Procedure: Colonoscopy Proceduralist: Parmjit Anand [facility] Indications/Pre-Op Diagnosis: Generalized abdominal pain Medications: [...] the bowel preparationwas evaluated using the BBPS ([place] Bowel Preparation Scale) with scores of: Right [...] 7:29 AM 01/16/2016 12:24 PM Care Teams Cook Enchilada Relationship Specialty Start Date End Date Maria E Nix [place] [address] [address] [place] [address] PCP - General Family Practice 06/05/22
--- OUTSIDE RECORDS SUMMARY | 2024-03-13 16:58 | XMS_ITS ---
Author Name Unknown Organization [facility] Address [address] [place] [address] Care Team Providers Care Remote Sensing Specialist Name Role Phone Unavailable Unavailable Unavailable Surgery Details Not on file Complications Check Surgery Details section. Procedure Estimated Blood Loss Check Surgery Details section. Procedure Findings Check Surgery Details section. Procedure Specimens Taken Check Surgery Details section.
--- OUTSIDE RECORDS SUMMARY | 2024-03-13 16:58 | XMS_ITS | Referral Summary ---
Author Name Unknown Organization [facility] Address [address] [place] [address] Care Team Providers Care Store Clerk Checker Name Role Phone Elsewhere, Pcp Primary Care Provider Unavailabl e Source Comments Patient records contain information from all sites at [facility]. For routine questions regarding patient records, call [phone] during business hours, M-F 8:00 AM - 5:00 PM Central Time. Record requests for emergency care only can be directed to [phone] at any time.[facility] Allergies Active Allergy Reactions Criticality Noted [...] Overview: Added automatically from request for surgery [id number] 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/2018 04/26/2019 Chronic Pain [...] often do you attend chur ch or sabianist services? More than 4 times per year 05/07/2022 Do you belong to any clubs o r organizations such as hindu groups, unions, fraternal or athletic groups, or [...] Answer Date Recorded PHQ-2 Score 1 05/07/2022 [facility] - Occupational [...] place to sleep or slept in a residential (including now)? No 05/07/2022 Depression Answer Date [...] Sex Assigned at Female 09/29/2017 8:12 AM BUS AND SYS INTEGRATION SENIOR MANAGER Gender Identity Female 09/29/2017 8:12 AM BUS AND SYS INTEGRATION SENIOR MANAGER Sexual Orientation Straight 09/29/2017 8: 12 AM BUS AND SYS INTEGRATION SENIOR MANAGER Last Filed Vital Signs Vital Sign Reading [...] 52.7 kg (116 lb 4.7 oz) 05/07/20 22 12:25 PM CDT Height 159 cm (5' 2.6) 05/07/2022 12:2 5 PM CDT Body Mass Index 20.87 05/07/2022 12:25 PM CDT Plan of Treatment Not on file Medical Devices Implanted Type Area X Ray Equipment Mechanic Device Identifier Shelf Expiration Date Model [...] All questions answered. ASSESSMENT: BI-RADS: 2: Benign. Carina Bowden APRN, C.N.P., R.N. IMG BI PROCEDURES from Last 3 Months or Most Recently Relevant to Health Maintenance Care Teams Store Clerk Checker Relationship Specialty Start Date End Date Elsewhere, Pcp PCP - General Internal Medicine 05/28/22
[2024-03-13 17:08] LABS: Albumin* 4.1 g/dL (3.3-5.0); Chloride* 109 mmol/L (96-114); INR 0.93 (0.91-1.10)
[2024-03-13 17:09] LABS: Partial Thromboplastin Time* 27 Seconds (23-33); Sodium* 137 mmol/L (135-149)
[2024-03-13 17:11] LABS: Alkaline Phosphatase* 93 U/L (40-150); Aspartate Amino Transferase* 38 U/L (12-35); Bilirubin Total* 0.2 mg/dL (0.1-1.5); Carbon Dioxide* 27 mmol/L (20-32); Creatinine* 0.6 mg/dL (0.5-1.5); Est. Creatinine Clearance* 42.49; Estimated Glomerular Filt Rate 96 ml/min; Total Protein* 7.1 g/dL (6.0-8.3)
[2024-03-13 17:12] LABS: Alanine Aminotransferase* 38 U/L (4-35); Blood Urea Nitrogen* 22 mg/dL (7-30); Calcium* 9.3 mg/dL (8.4-10.6); Creatine Kinase* 44 U/L (41-117); Glucose* 91 mg/dL (60-115); Magnesium* 2.3 mg/dL (1.5-2.6)
[2024-03-13] MEDS: OXYCODONE 5 MG TABLET PO (17:13)
[2024-03-13 17:14] LABS: Anion Gap 1 mEq/L (7-15)
[2024-03-13 17:20] LABS: D Dimer Quantitative* 5.02 ug/ml (0.00-0.50)
[2024-03-13 17:22] LABS: C Reactive Protein* < 0.5 mg/dL (0.5-1.0); NT Pro B Type NatriureticPept* 437 pg/mL
[2024-03-13 17:28] LABS: Procalcitonin* 0.06 ng/mL (<0.50)
[2024-03-13 17:31] LABS: Troponin I* < 0.01 ng/mL (0.01-0.04)
[2024-03-13 18:06] LABS: Erythrocyte SedimentationRate* 44 mm/hr (2-20)
[2024-03-13 18:49] LABS: Troponin, Point-of-Care* 0.01 ng/ml (0.01-0.04)
== END 2024-03-13 19:05 | disposition home or self-care (01) ==
PROVIDERS: Emergency Provider Family Medicine; PCP Family Medicine
DX: G89.18 Other acute postprocedural pain (principal)
CPT/HCPCS: 36415; 71275; 80053; 82550; 82803; 83605; 83735; 83880; 84145; 84484; 85025; 85379; 85610; 85651; 85730; 86140; 93005; 93971; 94761; 99284; 99285; A9270; Q9967

== ENCOUNTER 2024-04-25 09:15 | Outpatient (CLI) | payer MEDICARE, BC, SELFPAY ==
--- OUTSIDE RECORDS SUMMARY | 2024-04-25 09:29 | XMS_ITS ---
Author Organization [facility] Address [address] [place] [address] Care Team Providers Care Rag Room Supervisor Name Role Phone Unavailable Unavailable Unavailable Surgery Details Not on file Complications Check Surgery Details section. Procedure Estimated Blood Loss Check Surgery Details section. Procedure Findings Check Surgery Details section. Procedure Specimens Taken Check Surgery Details section.
--- OUTSIDE RECORDS SUMMARY | 2024-04-25 09:29 | XMS_ITS | Referral Summary ---
Author Organization [facility] Address [address] [place] [address] Care Team Providers Care Neuropsychologist Name Role Phone Elsewhere, Pcp Primary Care Provider Unavailabl e Source Comments Patient records contain information from all sites at [facility]. For routine questions regarding patient records, call [phone] during business hours, M-F 8:00 AM - 5:00 PM Central Time. Record requests for emergency care only can be directed to [phone] at any time.[facility] Allergies Active Allergy Reactions Criticality [...] Overview: Added automatically from request for surgery [id number] 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/2018 04/26/2019 Chronic Pain Syndrome 05/10/20182018 Immunizations Name Administration Dates Next Due Influenza, Unspecified 10/30/2021,12/09/2016 PPSV23 05/07/2022(Deferred: Patient decision),06/18/2020 RZV (SHINGRIX) 05/07/2022(Deferred: Patient manuel [...] often do you attend chur ch or quaker services? More than 4 times per year 05/07/2022 Do you belong to any clubs o r organizations such as spiritism groups, unions, fraternal or athletic groups, or [...] Answer Date Recorded PHQ-2 Score 1 05/07/2022 [facility] - Occupational [...] place to sleep or slept in a penitentiary (including now)? No 05/07/2022 Depression Answer Date [...] Sex Assigned at Female 09/29/2017 8:12 AM PARLIAMENTARY ARCHIVIST Gender Identity Female 09/29/2017 8:12 AM PARLIAMENTARY ARCHIVIST Sexual Orientation Straight 09/29/2017 8: 12 AM PARLIAMENTARY ARCHIVIST Last Filed Vital Signs Vital Sign Reading [...] on file Medical Devices Implanted Type Area Coil Winder Repair Device Identifier Shelf Expiration Date Model / [...] Recently Relevant to Health Maintenance Care Teams Neuropsychologist Relationship Specialty Start Date End Date Elsewhere, Pcp PCP - General Internal Medicine 05/28/22
--- OUTSIDE RECORDS SUMMARY | 2024-04-25 09:29 | XMS_ITS | Clinical Summary ---
Author Organization [facility] Address [address] [place] [address] Care Team Providers Care Warehouse Order Filler Name Role Phone Elsewhere, Pcp Primary Care Provider Unavailabl e Source Comments Patient records contain information from all sites at [facility]. For routine questions regarding patient records, call [phone] during business hours, M-F 8:00 AM - 5:00 PM Central Time. Record requests for emergency care only can be directed to [phone] at any time.[facility] Allergies Active Allergy Reactions Criticality Noted Date [...] Overview: Added automatically from request for surgery [id number] 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/2018 04/26/2019 Chronic Pain Syndrome 05/10/20182018 Immunizations Name Administration Dates Next Due Influenza, Unspecified 10/30/2021,12/09/2016 PPSV23 05/07/2022(Deferred: Patient decision),06/18/2020 RZV (SHINGRIX) 05/07/2022(Deferred: Patient dec [...] often do you attend chur ch or tenriism services? More than 4 times per year [...] Answer Date Recorded PHQ-2 Score 1 05/07/2022 [facility] - Occupational [...] place to sleep or slept in a long-term (including now)? 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
--- OUTSIDE RECORDS SUMMARY | 2024-04-25 09:29 | XMS_ITS | Clinical Summary ---
Author Organization [employer] [facility] Address [place], [place] [address] Care Team Providers Care Machine Puller Over Name Role Phone Maria E Nix DO Primary Care Provider Allergies Active Allergy Reactions Criticality Noted Date Comments Hymenoptera Allergenic Extract Edema 01/14/2016 Swelling and pain Unlisted Allergen (Include Detail In Comments) Other - Describe In Comment Field 01/16/2016 Seasonal pollens, nasal stuffiness Medications Medication Sig Dispensed Refills Start Date End Date Status omeprazole 20 mg tabletIndications:C hronic GERD,Oropharyngeal dysphagia Take 1 Tablet (20 mg) by mouth once daily before a meal. 90 Tablet 3 05/07/2023 Active medication order composer Medical Marijuana 0 08/04/2023 Active sertraline (ZOLOFT) 50 mg tabletIndications:D epression, recurrent (HC) TAKE 1 TABLET BY MOUTH EVERY DAY 90 Tablet 3 08/18/2023 Active celecoxib (CELEBREX) 100 mg capsuleIndications: Bilateral hip joint arthritis,Disc degeneration, lumbar Take 1 [...] A DAY NEEDED FOR CONSTIPATION 02/24/2024 Active WalkerIndications:S /P total left hip arthroplasty Walker with front wheels for home use. Length of need 99 03/06/2024 Active HYDROcodone-acetami nophen (5-325 mg/tablet)Indicatio ns:Lumbosacral radiculopathy at L1,DDD (degenerative disc disease), lumbar,Foraminal stenosis of cervical region Take 1 Tablet by mouth 4 times daily if needed for Pain. Max acetaminophen dose: 4000 mg in 24 hrs. 24 Tablet 03/15/2024 Active Active Problems Problem Noted Date Diagnosed Date Depression, recurrent 01/21/2024 Last Assessment & Plan: chart update only Encounters Date Type Department Care Team Description 04/24/2024 10:00 AM CDT Procedure Only [facility] [address] [facility] [place] [address] Lucia Ricks L Ac Acupuncture 04/24/2024 Travel 04/14/2024 11:30 AM CDT Procedure Only [facility] [address] [place] [address] Lucia Ricks L Ac Acupuncture 04/14/2024 Travel 04/12/2024 Medical Messaging [facility] [address] [facility] [address] Vargas Cintron MD Injection 03/27/2024 10:30 AM CDT Procedure Only [facility] [address] [place] [address] Lucia Ricks L Ac Acupuncture 03/27/2024 Travel 03/20/2024 8:30 AM CDT Procedure Only [facility] [address] [place] [address] Lucia Ricks L Ac Acupuncture 03/20/2024 Travel 03/13/2024 Orders Only [facility] Scanner 1 scan: (1-Ord) [place], US VENOUS LE LT, 03/13/2024 03/13/2024 Orders Only [facility] Scanner 1 scan: (1-Ord) [place], ANGIO CHEST PE PROTOCOL, 03/13/2024 03/06/2024 1:50 PM CDT Office Visit [facility] [address] [place] [address] Maria E Nix DO Post-op (hip/) 03/06/2024 Travel 03/03/2024 2:30 PM CDT Procedure Only [facility] [address] [place] [address] Lucia Ricks L Ac Acupuncture 03/02/2024 8:20 AM CDT Office Visit [facility] [address] [place] [address] Vargas Cintron MD Musculoskeletal Problem (Follow up hip and back pain, post-op left hip on 02/24/[address] [place]) 03/02/2024 Travel 02/24/2024 Orders Only [facility] Scanner 1 scan: (1-Ord) [facility], XR HIP LT, 02/24/2024 02/24/2024 Orders Only [facility] Scanner 1 scan: (1-Ord) [facility], RT HIP INJ, 02/24/2024 02/24/2024 Orders Only [facility] Scanner 1 scan: (1-Ord) [facility], XR LT HIP 1 VIEW, 02/24/2024 02/08/2024 Orders Only [facility] [address] [place] [address] Maria E Nix DO 1 scan: (1-Ord) NFLD-EKG-3.15.24 02/04/2024 10:15 AM CDT Preop Visit [facility] [address] [place] [address] Maria E Nix DO Preoperative Exam (left hip surgery 02/24/24/[facility] Dr. [place]) 02/04/2024 Travel from Last 3 Months Immunizations Name Administration Dates Next Due COVID-19 vaccine ([employer] 30mcg/0.3mL) PF, SOILA 10/30/2021 Influenza, High-dose Inactivated 10/30/2019 Influenza, High-dose [...] T Respiratory Rate 20 11/13/2021 10:28 AM PROGRAM PARAPROFESSIONAL Oxygen Saturation 99% 03/06/2024 2:05 PM CDT Inhaled Oxygen Concentration - - Weight 52.4 kg (115 lb 9.6 oz) 03/06/2024 2:05 P M CDT Height 159.4 cm (5' 2.76) 02/04/2024 10:24 AM C DT Body Mass Index 20.64 02/04/2024 10:24 AM CDT Plan of Treatment Upcoming Encounters Date Type Department Care Team (Late st Contact Info) Description 04/25/2024 9:40 AM CDT Office Visit [facility] [address] [place] [address] Vargas Cintron MD [address] [facility] [address] Arrived 05/03/2024 10:00 AM CDT Procedure Only [facility] [address] [place] [address] Lucia Ricks L Ac [address] [place] [address] 05/08/2024 10:30 AM CDT Procedure Only [facility] [address] [place] [address] Lucia Ricks L Ac [address] [place] [address] 05/11/2024 10:30 AM CDT Procedure Only [facility] [address] [place] [address] Lucia Ricks L Ac [address] [place] [address] 05/15/2024 10:30 AM CDT Procedure Only [facility] [address] [place] [address] Luica Ricks L Ac [address] [place] [address] 05/22/2024 10:30 AM CDT Procedure Only [facility] [address] [place] [address] Lucia Ricks L Ac [address] [place] [address] Health Maintenance Due Date Last Done Comments Zoster (shingles) series for age 50+ (1 of 2) 2002 Tetanus booster 04/24/2023 04/24/2013, 05/22, 05/06/2003 COVID-19 vaccine series (2022- season) 2023 10/30/2021, 02/04/2021, 01/14/2021 Medicare Wellness [...] Procedure Name Priority Date/Time Associated Diagnosis Comments AMB EPIDURAL STEROID INJECTION Routine 04/25/2024 7:57 AM CDT Lumbosacral radiculopathy at L1 DDD (degenerative disc disease), lumbar Lumbar facet arthropathy ACUPUNCTURE PLAN OF CARE Routine 04/24/2024 10:02 AM CDT Other low back pain ACUPUNCTURE PLAN OF CARE Routine 04/14/2024 11:26 AM CDT Other low back pain ACUPUNCTURE PLAN OF CARE Routine 03/27/2024 10:17 AM CDT Other low back pain ACUPUNCTURE PLAN OF CARE Routine 03/20/2024 8:21 AM CDT Other low back pain SCAN-ULTRASOUND REPORT 12:00 AM CDT SCAN-CT INTERPRETATION 12:00 AM CDT ACUPUNCTURE PLAN OF CARE Routine 03/06/2024 12:23 PM CDT Other low back pain ACUPUNCTURE PLAN OF CARE Routine 03/06/2024 12:23 PM CDT Other low back pain ACUPUNCTURE PLAN OF CARE Routine 03/06/2024 12:23 PM CDT Other low back pain SCAN-RADIOLOGY REPORT 02/24/2024 12:00 AM CDT SCAN-RADIOLOGY REPORT 02/24/2024 12:00 AM CDT SCAN-OPERATIVE/PROCEDU RE REPORT 02/24/2024 12:00 AM CDT PA READING EKG - NO CHARGE, COMP ONLY Routine 02/08/2024 10:07 AM CDT Pre-op exam EKG 12 LEAD Routine 02/08/2024 10:07 AM CDT Pre-op exam URINALYSIS MICROSCOPIC Routine 11:13 AM CDT Pre-op exam UA W/ SEDIMENT EXAM REFLEXED PER CRITERIA Routine 02/04/2024 11:13 AM CDT Pre-op exam HEMOGLOBIN Routine 02/04/2024 11:11 AM CDT Pre-op exam XR MAMMO BILAT SCREEN IMPLANT Routine 05/18/2023 10:47 AM CDT Breast cancer screening by mammogram XR DXA BONE DENSITY 2 SITES AXIAL Routine 05/13/2023 2:08 PM CDT Postmenopausal LC HCV ANTIBODY RFX TO QUANT PCR Routine 05/12/2023 10:58 AM CDT Need for hepatitis C screening test LIPID PANEL W REFLEX MEASURED LDL Routine 05/12/2023 10:58 AM CDT Lipid screening COLONOSCOPY 10/28/2021 10:10 AM PROGRAM PARAPROFESSIONAL from Last 3 Months or Most Recently Relevant to Health Maintenance Results * SCAN-ULTRASOUND REPORT (03/13/2024 12:00 AM CDT) Anatomical Region Laterality Modality Other Scanner OTHER * SCAN-CT INTERPRETATION (03/13/2024 12:00 AM CDT) Anatomical Region Laterality Modality Other Scanner OTHER * SCAN-RADIOLOGY REPORT (02/24/2024 12:00 AM CDT) Only the most recent of2 resultswithin the time period is included. Anatomical Region Laterality Modality Other Scanner OTHER * SCAN-OPERATIVE/PROCEDURE REPORT (02/24/2024 12:00 AM CDT) Scanner OTHER * EKG 12 LEAD (02/08/2024 10:07 AM CDT) Maria E Nix DO EKG ORD * PA READING EKG - NO CHARGE, COMP ONLY (02/08/2024 10:07 AM CDT) Maria E Nix DO PB - PROVIDER READI NGS * URINALYSIS MICROSCOPIC (02/04/2024 11:13 AM CDT) RBC 0-2 0-2, None Seen /HPF 02/04/2024 11:20 AM CDT [facility] WBC 0-2 0-2, 3-5, None Seen /HPF 02/04/2024 11:20 AM CDT [facility] BACTERIA Few None Seen, Rare, Few Bacteria/H PF 02/04/2024 11:20 AM CDT [facility] EPITHELIAL CELLS Few None Seen, Few Epi/HPF 02/04/2024 11:20 AM CDT [facility] Urine URINE SPECIMEN / Unknown Non-Blood / Unknown 02/04/2024 11:13 AM CDT 02/04/2024 11:13 AM CDT Maria E Nix DO URINE [facility] [address] [place] [address], * (ABNORMAL) UA W/ SEDIMENT EXAM REFLEXED PER CRITERIA (02/04/2024 11:13 AM CDT) COLOR Yellow Yellow Color 02/04/2024 11:20 AM CDT [facility] CLARITY Clear Clear Clarity 02/04/2024 11:20 AM CDT [facility] SPECIFIC GRAVITY,URINE 1.020 1.010, 1.015, 1.020, 1.025 02/04/2024 11:20 AM CDT [facility] PH,URINE 6.5 6.0, 7.0, 8.0, 5.5, 6.5, 7.5, 8.5 02/04/2024 11:20 AM CDT [facility] UROBILINOGEN, QUALITATIVE Normal Normal EU/dl 02/04/2024 11:20 AM CDT [facility] PROTEIN, URINE Negative Negative mg/dL 02/04/2024 11:20 AM CDT [facility] GLUCOSE, URINE Negative Negative mg/dL 02/04/2024 11:20 AM CDT [facility] KETONES,URINE Negative Negative mg/dL 02/04/2024 11:20 AM CDT [facility] BILIRUBIN,URI NE Negative Negative 02/04/2024 11:20 AM CDT [facility] OCCULT BLOOD,URINE Trace(A) Negative 02/04/2024 11:20 AM CDT [facility] NITRITE Negative Negative 02/04/2024 11:20 AM CDT [facility] LEUKOCYTE ESTERASE Trace(A) Negative 02/04/2024 11:20 AM CDT [facility] Urine URINE SPECIMEN / Unknown Non-Blood / Unknown 02/04/2024 11:13 AM CDT 02/04/2024 11:13 AM CDT Maria E Nix DO URINE [facility] [address] [place] [address], * HEMOGLOBIN (02/04/2024 11:11 AM CDT) HEMOGLOBIN 13.2 12.0 - 16.0 g/dL 02/04/2024 11:20 AM CDT [facility] MCV 95 80 - 100 fL 02/04/2024 11:20 AM CDT [facility] Blood BLOOD SPECIMEN / Unknown Venipuncture / Unknown 02/04/2024 11:11 AM CDT 02/04/2024 11:12 AM CDT Maria E Nix DO HEMATOLOGY Performing Organization Address City/[facility]/ZIP Co de Phone Number [facility] [address] [place] [address], [place] [phone] * XR MAMMO BILAT SCREEN IMPLANT (05/18/2023 [...] care provider. XR MAMMO BILAT SCREEN IMPLANT [[id number]] CLINICAL HISTORY: ??This is an asymptomatic 72 y.o. patient. INDICATION FOR EXAM: Mammogram Screening. TECHNIQUE: CC & MLO views were obtained. Implant displacement views were obtained. This study was evaluated with the assistance of Computer-Aided Detection. COMPARISON FILMS: Yes 04/16/21 [facility] 05/23/20 [facility] FINDINGS: ??The breasts are heterogeneously dense, which may obscure small masses. ??No suspicious masses or microcalcifications. ??There are breast implant(s) present.. Maria E Nix DO MAMMO * XR DXA BONE DENSITY 2 SITES AXIAL [05189.1] (05/13/2023 2:08 PM CDT) Anatomical Region Laterality [...] recommended in 3-5 years. Meka Benson PA-C [facility] 05/27/2023 Narrative 05/27/2023 12:47 PM CDT For Patients: Results are automatically released to your [facility] account once available, in compliance with federal regulations. This means that you may see your results before your provider has had a chance to review them. Please allow 2-3 business days for your provider to comment on the results. XR DXA Bone Mineral Density (BMD) EXAM LOCATION: [address] [address] PATIENT NAME: Alona LEVINE DATE OF : 1950 EXAM DATE: 05/13/2023 [...] two scanners are made by the same enologist. PROCEDURE: Dual-energy x-ray absorptiometry performed with routine [...] QUANT PCR (05/12/2023 10:58 AM CDT) Pathologist [facility] HCV Ab Non Reactive Non Reactive 05/14/2023 10:[address] [facility] ([facility]) Blood BLOOD SPECIMEN / Unknown Venipuncture / Unknown 05/12/2023 10:58 AM CDT 05/12/2023 10:59 AM CDT Narrative [facility] (CET) - 05/14/2023 10:10 AM CDT Performed at: ??01 - [address] ??[id number] Resort Manager: Bry Fairbanks MD, Phone: ??[phone] Maria E Nix DO [facility]) [facility] [place] [address], * (ABNORMAL) LIPID PANEL W REFLEX MEASURED LDL (05/12/2023 10:58 AM CDT) [facility] CHOLESTEROL,TOTAL 256(H) 100 - 199 mg/dL 05/12/2023 6:23 PM CDT [facility] Comment: Cholesterol, Total Reference Ranges Desirable <200 mg/dL Borderline 200-239 mg/dL High >=240 mg/dL TRIGLYCERIDES 83 <150 mg/dL 05/12/2023 6:23 PM CDT [facility] HDL CHOLESTEROL 58 >40 mg/dL 6:23 PM CDT [facility] NON-HDL CHOLESTEROL 198(H) <145 mg/dl 05/12/2023 6:23 PM CDT [facility] CHOL/HDL RATIO 4.41 <4.50 05/12/2023 6:23 PM CDT [facility] LDL CHOLESTEROL 181(H) <=130 mg/dL 05/12/2023 6:23 PM CDT [facility] VLDL CHOLESTEROL 17 <=30 mg/dL 05/12/2023 6:23 PM CDT [facility] PROVIDER ORDERED STATUS RANDOM 05/12/2023 6:23 PM CDT [facility] Blood BLOOD SPECIMEN / Unknown Venipuncture / Unknown 05/12/2023 10:58 AM CDT 05/12/2023 10:59 AM CDT Maria E Tsai Dinah FABIAN CHEMISTRY [facility] [address] [place] [address], [place] * COLONOSCOPY (10/28/2021 10:10 AM PROGRAM PARAPROFESSIONAL) 10/28/2021 10:1 0 AM PROGRAM PARAPROFESSIONAL Narrative Transcriptions Gadiel Anand MD - 10/28/2021 11:01 AM CST Patient Name: Alona Levine Procedure Date: 10/28/2021 Gender: Female Date of : 1950 Admit Type: Ambulatory Procedure: Colonoscopy Proceduralist: Parmjit Anand [facility] Indications/Pre-Op Diagnosis: Generalized abdominal pain Medications: Propofol [...] the bowel preparationwas evaluated using the BBPS ([place] Bowel Preparation Scale) with scores of: Right [...] 7:29 AM 01/16/2016 12:24 PM Care Teams Machine Puller Over Relationship Specialty Start Date End Date Maria E Nix [place] [address] PCP - General Family Practice 06/05/22
--- OUTSIDE RECORDS SUMMARY | 2024-04-25 09:29 | XMS_ITS | Continuity of Care Document ---
Author Organization [facility] Address [address] [address] [place] [address] Phone Care Team Providers Care Professional Caster Name Role Phone Deb Aguero MD Unavailable Unavailable Allergies, Adverse Reactions, Alerts Substance Reaction Status Criticality pollen extracts sneezing Active No Informati on Medications Medication Instructions Dosage Effective Dates (start - stop) Status Comments Vicodin 5 mg-300 mg tablet take 1 tablet by oral route every 4 - 6 hours as needed for pain - Active Pepcid AC 20 mg tablet take 1 tablet by oral route 2 times every day 20 MG - Active Procedures Procedure Date Ugi Endo; W/bx 1/mx Level Iv-surg Path Gross/micro 16 Advance Directives Directive Yes / No Effective Date File Name No Information Encounters Encounter Description Practice Location Reason(s) For Visit Diagnoses Date Provider Providers Copied on Encounter [facility], [address] [address], [place], [place], [id number], [place] tel:[phone] [facility] Epigastric painHiatal herniaEpigastric painDiaphragmatic hernia without obstruction or gangrene [address] Laci Boyd . [address] [facility], [facility] [address], [place], [place], [id number] , [place]. tel:[phone] Referring Provider: Carina Bal, [address] [place] [address], [address]. tel:[phone] Family History Family Member Type Diagnosis Age At Onset Sister Problem (finding) Alive and well Sister Problem (finding) diverticulitis of colon Mother Problem (finding) diverticulitis of colon Father Problem (finding) Brother Problem (finding) Alive and well Mother Problem (finding) Son Problem (finding) Alive and well Brother Problem (finding) diverticulitis of colon Daughter Problem (finding) Alive and well Payers Payer name Insurance type Covered republican ID Authoriza tijessenia(s) [employer] CI [id number] Social History Type Description Quantity Date Captured Comments Alcohol Use Details Unknown Caffeine Use Details Unknown Tobacco Use Status No Information Smoking Status Former smoker Sex Female Vital Signs Date / Time: Height Weight BMI Pulse Rate Blood Pressure Temperature Respiratory Rate Body Surface Area Head Circumference Head Circ. Percentile Wt./Terrell. Percentile BMI percentile Pulse Ox Inhaled Ox 63.00 in 49.890 kg (110.00 lbs) 19.5 0 kg/m eter (2) 61 /min 116/79 mm[Hg] 0.00 F 18 /min 99 % Chief Complaint And Reason For Visit No Information Reason For Referral Reason For Referral No Information History Of Present Illness Encounter Date Complaint History Of Prese nt Illness No Information Functional Status Date Functional Assessmen t No Information Instructions Date Instruction Additional Infor mation Hiatal Hernia Related to Epiga stric pain Assessments Type Assessment Date assessment Epigastric pain assessment Hiatal hernia Patient Care Teams Name Effective Dates (start - stop) Status Members No Information
== END 2024-04-25 09:16 | disposition home or self-care (01) ==
LOC: RAD 09:17 → INJ CL 09:18
PROVIDERS: PCP Family Medicine; Visit Provider Family Medicine
DX: M54.16 Radiculopathy, lumbar region (principal); M51.26 Other intervertebral disc displacement, lumbar region
CPT/HCPCS: 62323; J0702; Q9966

== ENCOUNTER 2024-08-08 10:30 | Outpatient (CLI) | payer MEDICARE, BC, SELFPAY ==
--- OUTSIDE RECORDS SUMMARY | 2024-08-08 10:33 | XMS_ITS | Clinical Summary ---
Author Organization [facility] Address [place], [place] [address] Care Team Providers Care Audit Intern Name Role Phone DinahMaria E Quin Primary Care Provider [phone] Allergies Active Allergy Reactions Criticality Noted Date Comments Bee Pollen Edema 03/01/2024 Hymenoptera Allergenic Extract Edema 01/14/2016 Swelling and pain Unlisted Allergen (Include Detail In Comments) Other - Describe In Comment Field 01/16/2016 Seasonal pollens, nasal stuffiness Medications Medication Sig Dispensed Refills Start Date End Date Status medication order composer Medical Marijuana 0 08/04/2023 Active sertraline (ZOLOFT) 50 mg tabletIndications:D epression, recurrent (HC) TAKE 1 TABLET BY MOUTH EVERY DAY 90 Tablet 3 08/18/2023 Active acetaminophen (TYLENOL EXTRA STRGTH) 500 mg [...] in 24 hrs. 24 Tablet 03/15/2024 Active omeprazole (PRILOSEC) 20 mg Delayed-Release capsuleIndications: Chronic GERD,Oropharyngeal dysphagia Take 1 Capsule (20 mg) by mouth two times daily before meals. 180 Capsule 3 05/22/2024 Active celecoxib (CELEBREX) 100 mg capsuleIndications: Bilateral hip joint arthritis,Disc degeneration, lumbar TAKE 1 CAPSULE (100 MG) BY MOUTH TWO TIMES DAILY WITH MEALS. 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 [address] Lucia Ricks L Ac Acupuncture 07/05/2024 Travel 06/19/2024 10:20 AM CDT Office Visit [facility] [address] [place] [address] Vargas Cintron MD Musculoskeletal Problem (Follow up back pain, had an L1-2 interlaminar epidural steroid injection on 04/25/24) 06/19/2024 Travel 06/17/2024 Refill [facility] [address] [place] [address] Maria E Nix DO Refill Request (Celecoxib) 06/14/2024 10:30 AM CDT Procedure Only [facility] [address] [place] [address] Lucia Ricks L Ac Acupuncture 06/14/2024 Travel 05/31/2024 10:30 AM CDT Procedure Only [facility] [address] [place] [address] Lucia Ricks L Ac Acupuncture 05/31/2024 Travel 05/22/2024 10:30 AM CDT Procedure Only [facility] [address] [place] [address] Lucia Ricks, Elizabeth Ac Acupuncture 05/22/2024 Travel 05/19/2024 [facility]ill [facility] [address] [facility] [address] Maria E Nix, DO Refill Request (Omeprazole) 05/13/2024 Refill [facility] [address] [place] [address] Maria E Nix, DO Refill Request (Celecoxib) 05/11/2024 10:30 AM CDT Procedure Only [facility] [address] [place] [address] Lucia Ricks, Elizabeth Ac Acupuncture 05/11/2024 Travel from Last 3 Months Immunizations Name Administration Dates Next Due COVID-19 vaccine (en-Gauge 30mcg/0.3mL) PF, MDV 10/30/2021 Influenza, High-dose Inactivated [...] Sign Reading Time Taken Comments Blood Pressure 132/76 06/19/2024 10:19 AM CDT Pulse 64 06/19/2024 10:19 AM CDT Temperature 36.4 ??C (97.6 ??F) 06/19/2024 10:19 AM C DT Respiratory Rate 20 11/13/2021 10:28 AM ETHYLENE PLANT OPERATOR Oxygen Saturation 99% 06/19/2024 10:19 AM CDT Inhaled Oxygen Concentration - - Weight 52.4 kg (115 lb 9.6 oz) 03/06/2024 2:05 P M CDT Height 159.4 cm (5' 2.76) 02/04/2024 10:24 AM C DT Body Mass Index 20.64 02/04/2024 10:24 AM CDT Plan of Treatment Upcoming Encounters Date Type Department Care Team (Late st Contact Info) Description 08/08/2024 11:00 AM CDT Office Visit [facility] [address] [place] [phone] Vargas Cintron MD [address] [place] [address] Arrived 08/14/2024 10:00 AM CDT Procedure Only [facility] [address] [place] [address] Lucia Ricks L Ac [address] [place] [address] 08/21/2024 11:30 AM CDT Procedure Only [facility] [address] [place] [address] Lucia Ricks L Ac [address] [place] [address] 09/18/2024 11:05 AM CDT Office Visit [facility] [address] [place] [address] Maria E Nix DO [address] [place] [address] 09/20/2024 11:00 AM CDT Office Visit [facility] [address] [place] [address] Vargas Cintron MD [address] [place] [address] Health Maintenance Due Date Last Done Comments Zoster (shingles) series for age 50+ (1 of 2) 2002 Tetanus booster 04/24/2023 04/24/2013, 05/22, 05/06/2003 Medicare Wellness for age 65+ 05/12/2024 05/12/2023 Depression screening for age 12+ 05/13/2024 05/13/2023, 05/12/2023, 12/18/2022, Additional history exists Mammogram for age 45-75 05/18/2024 05/18/20 23, 03/28/2008, 02/26/2005 COVID-19 vaccine series ( season) 2024 10/30/2021, 02/04/2021, 01/14/2021 Influenza for age 65+ 07/23/2024 10/30/2021 , [...] Diagnosis Comments AMB EPIDURAL STEROID INJECTION Routine 08/08/2024 8:02 AM CDT Lumbosacral radiculopathy at L1 DDD (degenerative disc disease), lumbar Lumbar facet arthropathy Foraminal stenosis of cervical region ACUPUNCTURE PLAN OF CARE Routine 07/05/2024 10:28 AM CDT Other low back pain ACUPUNCTURE PLAN OF CARE Routine 06/14/2024 10:28 AM CDT Other low back pain ACUPUNCTURE PLAN OF CARE Routine 06/02/2024 1:02 PM CDT Other low back pain ACUPUNCTURE PLAN OF CARE Routine 05/31/2024 11:32 AM CDT Other low back pain ACUPUNCTURE PLAN OF CARE Routine 05/22/2024 10:26 AM CDT Other low back pain ACUPUNCTURE PLAN OF CARE Routine 05/11/2024 10:37 AM CDT Other low back pain XR MAMMO BILAT [...] CDT Lipid screening COLONOSCOPY 10/28/2021 10:10 AM ETHYLENE PLANT OPERATOR from Last 3 Months or Most Recently Relevant to Health Maintenance Results * XR MAMMO BILAT SCREEN IMPLANT (05/18/2023 [...] For Patients: As a result of the Cures Act, medical imaging exams and procedure reports are released immediately into your electronic medical record. You may view this report before your referring provider. If you have questions, please contact your health care provider. XR MAMMO BILAT SCREEN IMPLANT [[id number]] CLINICAL HISTORY: ??This is an asymptomatic 72 y.o. patient. INDICATION FOR EXAM: Mammogram Screening. TECHNIQUE: CC & MLO views were obtained. Implant displacement views were obtained. This study was evaluated with the assistance of Computer-Aided Detection. COMPARISON FILMS: Yes 04/16/21 [facility] 05/23/20 [facility] FINDINGS: ??The breasts are heterogeneously dense, which may obscure small masses. ??No suspicious masses or microcalcifications. ??There are breast implant(s) present.. Maria E Nix DO MAMMO * XR DXA BONE DENSITY 2 SITES AXIAL [26392.1] (05/13/2023 2:08 PM CDT) Anatomical Region Laterality [...] exercise. Repeat scan recommended in 3-5 years. eMka Benson PA-C [facility] 05/27/2023 Narrative 05/27/2023 12:47 PM CDT For Patients: Results are automatically released to your [facility] account once available, in compliance with federal regulations. This means that you may see your results before your provider has had a chance to review them. Please allow 2-3 business days for your provider to comment on the results. XR DXA Bone Mineral Density (BMD) EXAM LOCATION: [facility] [address] [facility] [address] PATIENT NAME: Alona LEVINE DATE OF : [...] two scanners are made by the same maintenance mechanic millwright. PROCEDURE: Dual-energy x-ray absorptiometry performed with routine [...] TO QUANT PCR (05/12/2023 10:58 AM CDT) [facility] HCV Ab Non Reactive Non Reactive 05/14/2023 10:10 AM CDT [facility] ([facility] Blood BLOOD SPECIMEN / Unknown Venipuncture / Unknown 05/12/2023 10:58 AM CDT 05/12/2023 10:59 AM CDT Narrative [facility] ([facility]) - 05/14/2023 10:10 AM CDT Performed at: ??[address] ??[id number] Cad Intern: Bry Fairbanks MD, Phone: ??[phone] Maria E Nix DO LABORATORY [facility] ([facility]) [address] [place] [address] * (ABNORMAL) LIPID PANEL W REFLEX MEASURED LDL (05/12/2023 10:58 AM CDT) [facility] CHOLESTEROL,TOTAL 256(H) 100 - 199 mg/dL 05/12/2023 6:23 PM CDT [facility] Comment: Cholesterol, Total Reference Ranges Desirable <200 mg/dL Borderline 200-239 mg/dL High >=240 mg/dL TRIGLYCERIDES 83 <150 mg/dL 05/12/2023 6:23 PM CDT [facility] HDL CHOLESTEROL 58 >40 mg/dL 6:23 PM CDT [facility] NON-HDL CHOLESTEROL 198(H) <145 mg/dl 05/12/2023 6:23 PM CDT [facility] CHOL/HDL RATIO 4.41 <4.50 05/12/2023 6:23 PM CDT [facility] LDL CHOLESTEROL 181(H) <=130 mg/dL 05/12/2023 6:23 PM CDT [facility] VLDL CHOLESTEROL 17 <=30 mg/dL 05/12/2023 6:23 PM CDT [facility] PROVIDER ORDERED STATUS RANDOM 05/12/2023 6:23 PM CDT [facility] Blood BLOOD SPECIMEN / Unknown Venipuncture / Unknown 05/12/2023 10:58 AM CDT 05/12/2023 10:59 AM CDT Maria E Nix DO CHEMISTRY [facility] [address] [place] [address], * COLONOSCOPY (10/28/2021 10:10 AM ETHYLENE PLANT OPERATOR) 10/28/2021 10:1 0 AM ETHYLENE PLANT OPERATOR Narrative Transcriptions FromGadiel dolan MD - 10/28/2021 11:01 AM CST Patient Name: Alona Levine Procedure Date: 10/28/2021 Gender: Female Date of : 1950 Admit Type: Ambulatory Procedure: Colonoscopy Proceduralist: Parmjit Anand [facility] Indications/Pre-Op Diagnosis: Generalized abdominal pain Medications: Propofol [...] the bowel preparationwas evaluated using the BBPS (Hobgood Bowel Preparation Scale) with scores of: Right [...] 7:29 AM 01/16/2016 12:24 PM Care Teams Audit Intern Relationship Specialty Start Date End Date Maria E Nix DO [address] [place] [address] PCP - General Family Practice 06/05/22
== END 2024-08-08 10:31 | disposition home or self-care (01) ==
LOC: INJ CL 10:30
PROVIDERS: PCP Family Medicine; Visit Provider Family Medicine
DX: M54.16 Radiculopathy, lumbar region (principal)
CPT/HCPCS: 62323; J0702; Q9966

== ENCOUNTER 2025-03-13 10:28 | Outpatient (CLI) | payer MEDICARE, BC, SELFPAY | END 2025-03-13 10:29 | disposition home or self-care (01) | LOC: INJ CL 10:29 | PROVIDERS: PCP Family Medicine; Visit Provider Family Medicine | DX: M54.16 Radiculopathy, lumbar region (principal) | CPT/HCPCS: 62323; J0702; Q9966 ==

== ENCOUNTER 2025-05-22 07:52 | Outpatient (CLI) | payer MEDICARE, BC, SELFPAY ==
--- OUTSIDE RECORDS SUMMARY | 2025-05-22 08:28 | XMS_ITS | Data Portability ---
Author Organization [place] - [facility], autoContract - [employer] [facility] Address [address] [place] [address] Assessment Encounter Date Assessment Date Assessment LastModified by Organization Details LastModified Time 12/12/2024 12/12/2024 ASSESSMENT: Patient is a good candidate for conservative care and the prognosis is for a favorable outcome that achieves the patients' goals. We discussed etiology, activity modifications, home care, and other treatment options. Initially, it is recommended that the patient receive in-office treatment 1 times per week for 8 weeks at which time a re-evaluation will be performed to determine an appropriate change in plan. Initially, treatment will focus on joint manipulation to restore range of motion and reduce pain. We will slowly progress to therapeutic exercises and activities to improve function, strength, and stability may also be used as warranted. If the patient is not responding as expected, more invasive procedures will be discussed along with a referral. All considerations above were discussed with the patient and questions answered to satisfaction. If the patient should have any additional questions, or should the condition evolve or worsen, the patient should not hesitate to contact our office. Not available 12/12/2024 17:40:54 12/20/2024 12/20/2024 ASSESSMENT: Patient is a good candidate for conservative care and the prognosis is for a favorable outcome that achieves the patients' goals. We discussed etiology, activity modifications, home care, and other treatment options. Initially, it is recommended that the patient receive in-office treatment 1 times per week for 8 weeks at which time a re-evaluation will be performed to determine an appropriate change in plan. Initially, treatment will focus on joint manipulation to restore range of motion and reduce pain. We will slowly progress to therapeutic exercises and activities to improve function, strength, and stability may also be used as warranted. If the patient is not responding as expected, more invasive procedures will be discussed along with a referral. All considerations above were discussed with the patient and questions answered to satisfaction. If the patient should have any additional questions, or should the condition evolve or worsen, the patient should not hesitate to contact our office. Not available 12/20/2024 18:56:08 02/12/2025 02/12/2025 ASSESSMENT: Patient is a good candidate for conservative care and the prognosis is for a favorable outcome that achieves the patients' goals. We discussed etiology, activity modifications, home care, and other treatment options. Initially, it is recommended that the patient receive in-office treatment 1 times per week for 8 weeks at which time a re-evaluation will be performed to determine an appropriate change in plan. Initially, treatment will focus on joint manipulation to restore range of motion and reduce pain. We will slowly progress to therapeutic exercises and activities to improve function, strength, and stability may also be used as warranted. If the patient is not responding as expected, more invasive procedures will be discussed along with a referral. All considerations above were discussed with the patient and questions answered to satisfaction. If the patient should have any additional questions, or should the condition evolve or worsen, the patient should not hesitate to contact our office. Not available 02/12/2025 18:37:02 03/29/2025 03/29/2025 ASSESSMENT: Patient is a good candidate for conservative care and the prognosis is for a favorable outcome that achieves the patients' goals. We discussed etiology, activity modifications, home care, and other treatment options. Initially, it is recommended that the patient receive in-office treatment 1 times per week for 8 weeks at which time a re-evaluation will be performed to determine an appropriate change in plan. Initially, treatment will focus on joint manipulation to restore range of motion and reduce pain. We will slowly progress to therapeutic exercises and activities to improve function, strength, and stability may also be used as warranted. If the patient is not responding as expected, more invasive procedures will be discussed along with a referral. All considerations above were discussed with the patient and questions answered to satisfaction. If the patient should have any additional questions, or should the condition evolve or worsen, the patient should not hesitate to contact our office. Not available 03/29/2025 16:35:58 04/30/2025 04/30/2025 ASSESSMENT: Patient is a good candidate for conservative care and the prognosis is for a favorable outcome that achieves the patients' goals. We discussed etiology, activity modifications, home care, and other treatment options. Initially, it is recommended that the patient receive in-office treatment 1 times per week for 8 weeks at which time a re-evaluation will be performed to determine an appropriate change in plan. Initially, treatment will focus on joint manipulation to restore range of motion and reduce pain. We will slowly progress to therapeutic exercises and activities to improve function, strength, and stability may also be used as warranted. If the patient is not responding as expected, more invasive procedures will be discussed along with a referral. All considerations above were discussed with the patient and questions answered to satisfaction. If the patient should have any additional questions, or should the condition evolve or worsen, the patient should not hesitate to contact our office. Not available 04/30/2025 17:31:08 Plan of Treatment Reminders Order Date Submit Date Provider Last Modified By Organization Details Last Modified Time Details Appointments None record ed. Lab None record ed. Referral None record ed. Procedures None record ed. Surgeries None record ed. Imaging None record ed. Medication Orders None record ed. Patient TargetsNo targets recorded. Patient InstructionsNo instructions recorded. Reason for Referral None Reported. Problems Name Problem SNOMED Code Status Onset Date Resolution Date Notes Provider Name and Address Organization Details Recorded Time Lumbar segmental dysfunction 878000217 Active 2024 [place], [place] [address], [place], [address], [facility] 17:40:55 Somatic dysfunction of sacral spine 869135290 Active 2024 [place], [place] [address], [place], [address], [facility] 17:40:55 Low back pain 105920576 Active 2024 [place], [place] [address], [place], [address], [facility] 17:40:55 Thoracic segmental dysfunction 947977018 Active 2024 Tyler Castañeda [place] [address], [place], [address], [facility] 17:40:55 Problem Notes None recorded. Procedures Surgical History Date Name Laterality Status Provider Name and Address Organization Details Recorded Time 5 36789: Spinal manipulation , 3 to 4 regions completed [facility] Willie CastañedaAMBOY, [place] [address], [place], [address], [facility] 04/30/2025 17:31:21 5 50954: Spinal manipulation , 3 to 4 regions completed [facility] Willie CastañedaAMBOY, [place] [address], [place], [address], [facility] 03/29/2025 16:36:06 5 45994: Spinal manipulation , 3 to 4 regions completed [facility] Willie CastañedaAMBOY, [place] [address], [place], [address], [facility] 02/12/2025 18:37:02 5 44752: Spinal manipulation , 3 to 4 regions completed [facility] Willie CastañedaAMBOY, [place] [address], [place], [address], [facility] 12/20/2024 18:56:08 5 60254: Spinal manipulation , 3 to 4 regions completed [facility] GarryAMBOY, [place] [address], [place], [address], [facility] 12/12/2024 17:41:08 Imaging Results None recorded. Procedure Notes None recorded. Medical Equipment None Reported. Medications Name Sig Start Date Stop Date Status Note LastModified by Organization Details LastModified Time hydrocodone 5 mg-acetamino phen 325 mg tablet TAKE 1 TABLET BY MOUTH 4 TIMES DAILY IF NEEDED FOR PAIN. MAX ACETAMINOPH EN DOSE: 4000 MG IN 24 HRS. active Not Available Not Available No t Available senna 8.6 mg tablet TAKE 2 TABLETS BY MOUTH TWICE A DAY NEEDED FOR CONSTIPATIO N active Not Available Not Available No t Available omeprazole 20 mg capsule,corinna yed release TAKE 1 CAPSULE (20 MG) BY MOUTH TWO TIMES DAILY BEFORE MEALS. active Not Available Not Available No t Available aspirin 81 mg chewable tablet TAKE 1 TABLET BY MOUTH TWICE A DAY FOR FOR DVT PROPHYLAXIS FOR 30 DAYS active Not Available Not Available Not Available celecoxib 100 mg capsule TAKE 1 CAPSULE (100 MG) BY MOUTH TWO TIMES DAILY WITH MEALS. active Not Available Not Available Not Available sertraline 50 mg tablet TAKE 1 TABLET BY MOUTH EVERY DAY active Not Available Not Available No t Available oxycodone 5 mg tablet TAKE 1 TABLET BY MOUTH EVERY 8 HOURS NEEDED FOR PAIN active Not Available Not Available No t Available Xarelto 10 mg tablet TAKE 1 TAB BY MOUTH DAILY FOR DVT PROPHYLAXIS FOR 4 DAYS THEN ASPIRIN 81MG TWICE DAILY FOR 30 DAYS active Not Available Not Available No t Available Vitals None Recorded Social History None recorded. Functional Status None recorded. Mental Status None recorded. Family History Nothing Reported. Medical History No medical history recorded. Gynecological HistoryNo gynecological history recorded. Obstetrics History GPAL:G 0 P 0 0 0 0 Past Encounters Encounter ID Performer Location Encounter Start Date Encounter Closed Date Diagnosis/Indication Diagnosis SNOMED-CT Code Diagnosis ICD10 Code Diagnosis Note [id number] Tyler Castañeda DC [facility] [address] [place] [address] 12/12/2024 15:19:52 12/12/2024 18:05:35 Lumbar segmental dysfunction 965553519 M99.03 Low back pain 814661574 M54.50 Somatic dy sfunction of sacral spine 970528192 M99.04 Thoracic s egmental dysfunction 023917142 M99.02 [id number] Tyler Castañeda DC [facility] [address] [place] [address] 12/20/2024 16:42:39 12/21/2024 09:14:16 Lumbar segmental dysfunction 585828179 M99.03 Low back pain 858788697 M54.50 Somatic dy sfunction of sacral spine 762643264 M99.04 Thoracic s egmental dysfunction 374518617 M99.02 [id number] Tyler Castañeda DC [facility] [address] [place] [address] 02/12/2025 18:03:30 02/12/2025 18:53:55 Lumbar segmental dysfunction 116243201 M99.03 Low back pain 991353716 M54.50 Somatic dy sfunction of sacral spine 065834456 M99.04 Thoracic s egmental dysfunction 162251006 M99.02 [id number] Tyler Castañeda DC [facility] [address] [place] [address] 03/29/2025 12:29:15 03/29/2025 16:52:46 Lumbar segmental dysfunction 394065190 M99.03 Low back pain 771338999 M54.50 Somatic dy sfunction of sacral spine 235331378 M99.04 Thoracic s egmental dysfunction 682203738 M99.02 [id number] Tyler Castañeda DC [facility] & [address] [place] [address] 04/30/2025 16:15:05 04/30/2025 17:32:17 Lumbar segmental dysfunction 329301462 M99.03 Low back pain 183303562 M54.50 Somatic dy sfunction of sacral spine 384934084 M99.04 Thoracic s egmental dysfunction 344644895 M99.02 Health Concerns Section Related Observation LastModified by Organization Detai ls LastModified Time None Recorded Concern Status LastModified by Organization Details LastModified Time None Recorded Advance Directives Directive None Recorded Payers Insurance Date Sequence Insurance Name Policy Number Policy Up Covered Member ID Up Member ID Guarantor Name 04/30/2025 1 [place] [employer] Alona Rodriguez [id number] 1 Alona Rodriguez 04/30/2025 2 [place]) [id number] Alona Rodriguez [id number] Alona Doshabnamen 12/20/2024 2 UNSPECIFIED REMIT PAYOR Alona Rodriguez Notes Date Note Type Note Provider Name and Address Organization Details Recorded Time 12/12/2024 text/html HPI - Lumbar SpineReported bypatient.Quality:a dayanara Severity:not changing Timing:morning Aggravating Factors:standing Alleviating Factors:ice Tyler Castañeda [place] [address], [place], [address], [facility] 12/12/2024 17:41:28 12/20/2024 text/html HPI - Lumbar SpineReported bypatient.Location: bilateral Quality:aching Severity:not changing Timing:morning Aggravating Factors:standing Alleviating Factors:ice Patient presents for mid back discomfort. Tyler Castañeda [place] [address], [place], [address], [facility] 12/20/2024 18:56:47 02/12/2025 text/html HPI - Lumbar SpineReported bypatient.Location: bilateral Quality:aching Severity:not changing Timing:morning Aggravating Factors:standing Alleviating Factors:ice Patient presents for mid back discomfort. Tyler Castañeda [place] [address], [place], [address], [facility] 02/12/2025 18:37:46 03/29/2025 text/html HPI - Lumbar SpineReported bypatient.Location: bilateral Quality:aching Severity:not changing Timing:morning Aggravating Factors:standing Alleviating Factors:ice Patient presents for mid back discomfort. Tyler Castañeda [place] [address], [place], [address], [facility] 03/29/2025 16:36:23 04/30/2025 text/html HPI - Lumbar SpineReported bypatient.Location: left Quality:aching Severity:moderate Timing:morning Aggravating Factors:walking; lifting; carrying; twisting Alleviating Factors:rest Tyler Castañeda [place] [address], [place], [address], [facility] 04/30/2025 17:31:33 OBGyn Episode No OBEpisode recorded.
--- OUTSIDE RECORDS SUMMARY | 2025-05-22 08:28 | XMS_ITS | Continuity of Care Document ---
Author Organization [place] - [facility] Address [address] [place] [address] Assessment Encounter Date Assessment Date Assessment LastModified by Organization Details LastModified Time 04/30/2025 04/30/2025 ASSESSMENT: Patient is a good [...] should not hesitate to contact our office. [email or web address] Not available 04/30/2025 17:31:08 Plan of Treatment [...] Organization Details Recorded Time Lumbar segmental dysfunction 390120060 Active 2024 Tyler Castañeda [place] [address], [place], [address], [place] [facility] 17:40:55 Somatic dysfunction of sacral spine 916117157 Active 2024 Tyler Castañeda [place] [address], [place], [address], [place] [facility] 5 17:40:55 Low back pain 665639157 Active 2024 Tyler Castañeda [place] [address], [place], [address], [place] [facility] 17:40:55 Thoracic segmental dysfunction 191467293 Active 2024 Tyler Castañeda [place] [address], [place], [address], [place] [facility] 17:40:55 Problem Notes None recorded. Procedures Surgical History Date Name Laterality Status Provider Name and Address Organization Details Recorded Time 5 36284: Spinal manipulation , 3 to 4 regions completed Tyler Castañeda [place] [address], [place], [address], [place] [facility] 04/30/2025 17:31:21 5 84136: Spinal manipulation , 3 to 4 regions completed Tyler Castañeda [place] [address], [place], [address], [facility] [place] [facility] 03/29/2025 16:36:06 5 [address]76[address]: Spinal manipulation , 3 to 4 regions completed Tyler Castañeda [place] [address], [place], [address], [place] [facility] 02/12/2025 18:37:02 5 55679: Spinal manipulation , 3 to 4 regions completed Tyler Castañeda [place] [address], [place], [address], [place] [facility] 12/20/2024 18:56:08 5 38329: Spinal manipulation , 3 to 4 regions completed Tyler Castañeda [place] [address], [place], [address], [facility] 12/12/2024 17:41:08 Imaging Results None recorded. Procedure [...] SNOMED-CT Code Diagnosis ICD10 Code Diagnosis Note [id number] [facility] Willie Castañeda DC [facility] [address] [facility] [place] [address] 04/30/2025 16:15:05 04/30/2025 17:32:17 Lumbar segmental dysfunction 618209619 M99.03 Low back pain 553036109 M54.50 Somatic dy sfunction of sacral spine 469031819 M99.04 Thoracic s egmental dysfunction 066279670 M99.02 Health Concerns Section Related Observation LastModified by Organization Detai ls LastModified Time None Recorded Concern Status LastModified by Organization Details LastModified Time None Recorded Payers Encounter Date Sequence Insurance Name Policy Number Policy Up Covered Member ID Pu Member ID Guarantor Name 04/30/2025 1 [place] [employer] Alona Chatmanaydin [id number] 1 Alona Rodriguez 04/30/2025 2 [place]) [id number] Alonarodrigo Chatmanaydin [id number] Alona Dodav Notes Date Note Type Note Provider Name and Address Organization Details Recorded Time 04/30/2025 text/html HPI - Lumbar SpineReported bypatient.Location: left Quality:aching Severity:moderate Timing:morning Aggravating Factors:walking; lifting; carrying; twisting Alleviating Factors:rest [facility] Willie Castañeda [place] [address], [place], [address], [facility] [place] [facility] 04/30/2025 17:31:33 OBGyn Episode No OBEpisode recorded.
--- OUTSIDE RECORDS SUMMARY | 2025-05-22 15:40 | XMS_ITS | Clinical Summary ---
Author Organization [facility] Address [facility] [place] [address] Care Team Providers Care Mds Coordinator Name Role Phone Maria E Nix DO Primary Care Provider [phone] Allergies Active Allergy Reactions Criticality Noted Date Comments Bee Pollen Edema 03/01/2024 Hymenoptera Allergenic Extract Edema 01/14/2016 Swelling and pain Unlisted Allergen (Include Detail In Comments) Other - Describe In Comment Field 01/16/2016 Seasonal pollens, nasal stuffiness Medications medication order composer Medical Marijuana 0 3 Active acetaminophen (TYLENOL EXTRA STRGTH) 500 mg tablet Take by mouth. 4 Active celecoxib (CELEBREX) 100 mg capsuleIndicatio ns:Bilateral hip joint arthritis Take 1 Capsule (100 mg) by mouth two times daily with meals. 180 Capsule 3 4 Active omeprazole (PRILOSEC) 20 mg Delayed-Release capsuleIndicatio ns:Chronic GERD,Oropharynge al dysphagia Take 1 Capsule (20 mg) by mouth once daily before a meal. 90 Capsule 3 4 Active sertraline (ZOLOFT) 50 mg tabletIndication s:Depression, recurrent Take 1 Tablet (50 mg) by mouth once daily. 90 Tablet 4 4 Active WalkerIndication s:S/P total left hip arthroplasty Walker with front wheels for home use. Length of need 99 4 025 Discontinu ed(*Med complete/R egimen complete/L evel of care change) predniSONE 10 mg tabletIndication s:Lumbar facet arthropathy,Caser In yocasta left SI joint pain Take 4 Tablets (40 mg) by mouth once daily with a meal for 3 days, THEN 3 Tablets (30 mg) once daily with a meal for 3 days, THEN 2 Tablets (20 mg) once daily with a meal for 3 days, THEN 1 Tablet (10 mg) once daily with a meal for 3 days. 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 at [address] [address] Vargas Cintron MD Procedure (Left sacroiliac joint injection, left L3-4 and L4-5 facet injections.) 05/21/2025 Travel 05/03/2025 10:00 AM CDT Office Visit [facility] [address] [place] [address] Vargas Cintron MD Musculoskeletal Problem (Low back pain, more on left then right, Tailbone ) 05/03/2025 Travel 04/23/2025 11:30 AM CDT Procedure Only [facility] [address] [place] [address] Lucia Ricks L Ac Acupuncture 04/23/2025 Travel 03/22/2025 Travel 03/20/2025 11:30 AM CDT Procedure Only [facility] [address] [place] [address] Lucia Ricks L Ac Acupuncture 03/20/2025 Travel 03/16/2025 10:00 AM CDT Procedure Only [facility] [address] [place] [address] Lucia Ricks L Ac Acupuncture 03/16/2025 Travel 03/13/2025 10:40 AM CDT Office Visit [facility] at [facility] [address] [place] [address] Vargas Cintron MD Procedure (L1-2 ILESI) 02/23/2025 10:40 AM CDT Office Visit [facility] [address] [place] [address] Vargas Cintron MD Musculoskeletal Problem (Follow up low back pain/Consult left knee pain and swelling) 02/23/2025 Travel from Last 3 Months Immunizations Immunization Administration Dates Next Due COVID-19 vaccine ([employer] 30mcg/0.3mL) P F, MDV 10/30/2021 Influenza, High-dose Inactivated 10/30/2019 Influenza, High-dose Quadrivalent Inactivated Influenza, IIV4 12/09/2016 Pneumococcal Conj 20-valent (Prevnar 20) 023 Pneumococcal Poly,23-Valent (Pneumovax) 06/18/20 20 Td (Age >=7 Years) 06/05/2004,05/06/2003 Tdap 09/25/2024,04/24/2013 Family History Medical History Relation Name Comments [...] 1 05/12/2023 Social Connections Answer Date Recorded Do you often feel lonely or isolated from those around you? 0 08/21/2024 Financial Resource Strain Answer Date R ecorded Difficulty of Paying Living Expenses 3 08/21/2024 Difficulty of Paying Living Expenses Not on file 08/21/2024 Food Insecurity Answer Date Recorded Do you worry your food will run out before you are able to buy more? 1 08/21/2024 Transportation Needs Answer Date Record ed Does lack of transportation keep you from medica l appointments? 1 08/21/2024 Does lack of transportation keep you from work, meetings or getting things that you need? 1 08/21/2024 Housing Stability Answer Date Recorded What is your housing situation today? 1 08/21/2024 Utilities Answer Date Recorded Do you have trouble paying f or utilities (for example, heat, electricity, water, phone)? 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 Not on file Not on file Obstetrics History Last Filed Vital Signs Vital Sign Reading Time Taken Comments Blood Pressure 120/75 05/03/2025 10:10 AM CDT Pulse 59 05/03/2025 10:10 AM CDT Temperature 36.4 C (97.6 F) 02/23/2025 10:33 AM CDT Respiratory Rate 20 11/13/2021 10:28 AM VETERINARY VIRUS SERUM INSPECTOR Oxygen Saturation 100% 05/03/2025 10:10 AM CDT Inhaled Oxygen Concentration - - Weight 60.4 kg (133 lb 3.2 oz) 05/03/2025 10:10 AM CDT Height 159.4 cm (5' 2.76) 10/09/2024 10:[address] Body Mass Index 23.78 10/09/2024 10:08 AM VETERINARY VIRUS SERUM INSPECTOR Plan of Treatment Upcoming Encounters Date Type Department Care Team (Late st Contact Info) Description 07/04/2025 11:00 AM CDT Office Visit [facility] [address] [place] [address] Vargas Cintron MD [address] [place] [address] Health Maintenance Due Date Last Done Comments Zoster (shingles) series for age 50+ (1 of 2) 2002 RSV vaccine for adults or (1 - Risk 60-74 years 1-dose series) 2012 Depression screening for age 12+ 05/13/2024 05/13/2023, 05/12/2023, 12/18/2022, Additional history exists Mammogram for age 45-75 05/18/2024 05/18/20, 03/28/2008, 02/26/2005 COVID-19 vaccine series ( season) 2024 10/30/2021, 02/04/2021, 01/14/2021 Influenza Vaccine (#1) 2025 10/30/2019, 2016 Medicare Wellness for age 65+ 09/19/2025 09/18/2024, 05/12/2023 BMI (ht and wt on same day) for age 18+ 10/09/2025 10/09/2024, 02/04/2024, 05/12/2023, Additional history exists Lipids for age 45-75 09/18/2029 09/18/2024, 05/12/2023, 02/29/2008 Colonoscopy through age 75 10/28/203110/28, 04/25/2008, 04/25/2008 Tetanus booster 09/25/2034 09/25/2024, 06/0 01/2013, 06/05/2004, Additional history exists Hepatitis C screening for age 18-79 Completed 05/12/2023 Pneumococcal series for age 50+ Completed 05/12/2023, 06/18/2020 DEXA/DXA scan for age 65+ Completed 05/13/2023 Hepatitis B series for 19+ Aged Out N o longer eligible based on patient's age to complete this topic Procedures Procedure Name Priority Date/Time Associated Diagnosis Comments ACUPUNCTURE PLAN OF CARE Routine 04/23/2025 11:24 AM CDT Other low back pain ACUPUNCTURE PLAN OF CARE Routine 03/20/2025 11:26 AM CDT Other low back pain ACUPUNCTURE PLAN OF CARE Routine 03/16/2025 9:55 AM CDT Other low back pain AMB EPIDURAL STEROID INJECTION Routine 03/13/2025 12:00 AM CDT Chronic midline thoracic back pain Lumbar spondylosis Lumbar radiculopathy LIPID PANEL W REFLEX MEASURED LDL Routine 09/18/2024 11:37 AM CDT Lipid screening XR MAMMO BILAT SCREEN IMPLANT Routine 05/18/2023 10:47 AM CDT Breast cancer screening by mammogram XR DXA BONE DENSITY 2 SITES AXIAL Routine 05/13/2023 2:08 PM CDT Postmenopausal LC HCV ANTIBODY RFX TO QUANT PCR Routine 05/12/2023 10:58 AM CDT Need for hepatitis C screening test COLONOSCOPY 10/28/2021 10:10 AM VETERINARY VIRUS SERUM INSPECTOR from Last 3 Months or Most Recently Relevant to Health Maintenance Results * AMB EPIDURAL STEROID INJECTION (03/13/2025 12:00 AM CDT) us Vargas Cintron MD NEUROLOGY ORD Final Resu lt * (ABNORMAL) LIPID PANEL W REFLEX MEASURED LDL (09/18/2024 11:37 AM CDT) Pathologist [facility] CHOLESTEROL, TOTAL 238(H) <200 mg/dL [facility] HDL CHOLESTEROL 50 > OR = 50 mg/dL [facility] TRIGLYCERIDES 267(H) <150 mg/dL [facility] Comment: If a non-fasting specimen was collected, consider repeat triglyceride testing on a fasting specimen if clinically indicated. Marcella et al. J. of Clin. Lipidol. 2015;9:129-169. LDL-CHOLESTEROL 147(H) mg/dL (calc) [facility] Comment: Reference range: <100 Desirable range <100 mg/dL for primary prevention; <70 mg/dL for patients with CHD or diabetic patients with > or = 2 CHD risk factors. LDL-C is now calculated using the Alexander-Muller calculation, which is a validated novel method providing better accuracy than the Friedewald equation in the estimation of LDL-C. Alexander SS et al. CASSY. 2013;310(19): 6059-6476 (http://education.Loud3r/faq/ZWA875) CHOL/HDLC RATIO 4.8 <5.0 (calc) [facility] NON HDL CHOLESTEROL 188(H) <130 mg/dL (calc) [facility] Comment: For patients with diabetes plus 1 major ASCVD risk factor, treating to a non-HDL-C goal of <100 mg/dL (LDL-C of <70 mg/dL) is considered a therapeutic option. Blood BLOOD SPECIMEN / Unknown 09/18/2024 11:37 AM CDT 09/18/2024 11:38 AM CDT us Maria E Nix DO CHEMISTRY Final Resul t [facility] [address] [place] [address], [facility] [address] [place] [address] * XR MAMMO BILAT SCREEN IMPLANT (05/18/2023 10:47 AM CDT) Anatomical Region Laterality Modality BREASTS, Breast Left, Breast Right Bilateral Mammography Impressions 05/18/2023 3:27 PM CDT There is no radiographic evidence for malignancy. Recommend annual mammograms. MAMMOGRAM ASSESSMENT: ACR 2 Benign PATIENTS: You will also receive a letter with your examination results in an easy to read format. If you have questions about your results, please [...] care provider. XR MAMMO BILAT SCREEN IMPLANT [[id number]] CLINICAL HISTORY: This is an asymptomatic 72 y.o. patient. INDICATION FOR EXAM: Mammogram Screening. TECHNIQUE: CC & MLO views were obtained. Implant displacement views were obtained. This study was evaluated with the assistance of Computer-Aided Detection. COMPARISON FILMS: Yes 04/16/21 [facility] 05/23/20 [facility] FINDINGS: The breasts are heterogeneously dense, which may obscure small masses. No suspicious masses or microcalcifications. There are breast implant(s) present.. Maria E Nix DO MAMMO Final Resul t * XR DXA BONE DENSITY 2 SITES AXIAL [[id number]] (05/13/2023 2:08 PM CDT) Anatomical Region Laterality [...] recommended in 3-5 years. Meka Benson PA-C [facility] 05/27/2023 Narrative 05/27/2023 12:47 PM CDT For Patients: Results are automatically released to your [employer] account once available, in compliance with federal regulations. This means that you may see your results before your provider has had a chance to review them. Please allow 2-3 business days for your provider to comment on the results. XR DXA Bone Mineral Density (BMD) EXAM LOCATION: [facility] [address] [facility] [address] PATIENT NAME: Alona LEVINE DATE OF : 1950 EXAM DATE: 05/13/2023 REQUESTING PROVIDER: aMria E Nix DO GENDER AT : female HEIGHT: 5' 2.8 (05/12/2023) WEIGHT: 112 lb (05/12/2023) MENOPAUSAL STATUS: Postmenopausal RACE/ETHNICITY: White [...] two scanners are made by the same roll skinner. PROCEDURE: Dual-energy x-ray absorptiometry performed with routine technique. Reporting is completed in the form of a T-score. The T-score represents the standard deviation from peak bone mass based on young healthy adult. A Z-score is used for diagnosis in premenopausal women, and for men under the age of 50. FINDINGS: RESULT LUMBAR SPINE L2 - L4 BMD: 1.229 g/cm2 T-Score: + 0.1 Z-Score: + 2.3 Change from prior: None RESULTS FEMUR Left femoral neck BMD: 0.919 g/cm2 T-Score: - 0.9 Z-Score: + 1.2 Change from prior: None Right femoral neck BMD: 0.950 g/cm2 T-Score: - 0.6 Z-Score: + 1.4 Change from prior: None Left hip BMD: 1.016 g/cm2 T-Score: + 0.1 Z-Score: + 1.9 Change from prior: None Right hip BMD: 1.008 g/cm2 T-Score: + 0.0 Z-Score: + 1.8 Change from prior: None WHO criteria: Normal: T-score at or above -1 SD Osteopenia: T-score between -1.1 and -2.4 SD Osteoporosis: T-score at or below -2.5 SD Maria E Nix DO DEXA Final Resul t * LC HCV ANTIBODY RFX TO QUANT PCR (05/12/2023 10:58 AM CDT) Pathologist [facility] HCV Ab Non Reactive Non Reactive 05/14/2023 10:10 AM CDT [facility] Blood BLOOD SPECIMEN / Unknown Venipuncture / Unknown 05/12/2023 10:58 AM CDT 05/12/2023 10:[address] [facility] - 05/14/2023 10:10 AM CDT Performed at: [facility] RAP Index[address] [facility], [place], [place] [id number] Kosher Inspector: Bry Fairbanks MD, Phone: [phone] us Maria E Carvalhorosendo DO LABORATORY Final Resul t [facility] ([facility]) [address] [place] [address], * COLONOSCOPY (10/28/2021 10:10 AM VETERINARY VIRUS SERUM INSPECTOR) 10/28/2021 10:1 0 AM VETERINARY VIRUS SERUM INSPECTOR Narrative Transcriptions FromGadiel dolan MD - 10/28/2021 11:01 AM CST Patient Name: Alona Levine Procedure Date: 10/28/2021 Gender: Female Date of : 1950 Admit Type: Ambulatory Procedure: Colonoscopy Proceduralist: Parmjit Anand [facility] Indications/Pre-Op Diagnosis: Generalized abdominal pain Medications: Propofol [...] the bowel preparationwas evaluated using the BBPS (Horatio Bowel Preparation Scale) with scores of: Right [...] 10:10 AM Gadiel Anand MD PROCEDURE ORD Final Resu lt from Last 3 Months or Most Recently Relevant to Health Maintenance Insurance MEDICARE PART B HB ONLY [place] BL[place] HB ONLY [place] BLUE MR PB ONLY [employer] APPLAUSE Advance Directives * Full Code (Latest Code [...] 7:29 AM 01/16/2016 12:24 PM Care Teams Mds Coordinator Relationship Specialty Start Date End Date Maria E Nix [place] [address] [address] PCP - General Family Practice 06/05/22
== END 2025-05-22 07:53 | disposition home or self-care (01) ==
PROVIDERS: PCP Family Medicine; Visit Provider Family Medicine
DX: M53.3 Sacrococcygeal disorders, not elsewhere classified (principal); M47.816 Spondylosis without myelopathy or radiculopathy, lumbar region
CPT/HCPCS: 27096; 64493; 64494; J0702; Q9966

== ENCOUNTER 2025-11-06 07:10 | Outpatient (CLI) | payer MEDICARE, BC, SELFPAY | END 2025-11-06 07:11 | disposition home or self-care (01) | LOC: INJ CL 07:11 | PROVIDERS: PCP Family Medicine; Visit Provider Family Medicine | DX: M54.16 Radiculopathy, lumbar region (principal) | CPT/HCPCS: 62323; J0702; Q9966 ==